=== PATIENT | female | born 2005 | race African-American/Black ===

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

== ENCOUNTER 2024-05-02 17:59 | Emergency (ER) | payer OTHER, SELFPAY ==
[2024-05-02 18:07] VITALS: BP 152/87; PULSE 98; RESP 18; TEMP 35.8; O2SAT 98
--- NOTE | 2024-05-02 18:24 | ED.WOUNDLAC ---
HPI - Wound/Laceration General Chief Complaint: Wound/Laceration Stated Complaint: Laceration Right Arm Time Seen by Provider: 05/02/24 18:24 Source: patient Mode of arrival: ambulatory Limitations: no limitations History of Present Illness HPI narrative: 18-year-old female presents with laceration to right forearm. Your happen approximately 50 minutes prior to arrival. Tetanus up-to-date. 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 Bleeding controlled on arrival. All systems reviewed and negative except as noted above. Related Data Home Medications Medication Instructions Recorded Confirmed medroxyprogesterone 150 mg/mL See Rx Instructions .Route .COMPLEX 05/02/24 05/02/24 intramuscular syringe Allergies Allergy/AdvReac Type Severity Reaction Status Date / Time No Known Allergies Allergy Verified 05/02/24 18:41 Review of Systems Review of Systems: CONSTITUTIONAL: Denies fever, chills, or sweats. EYES: Denies visual changes, redness, or discharge. ENT: Denies rhinorrhea, congestion, sore throat, or otalgia. CARDIOVASCULAR: Denies chest pain, palpitations, or edema. RESPIRATORY: Denies cough or dyspnea. GASTROINTESTINAL: Denies abdominal pain, nausea, vomiting, or diarrhea. GENITOURINARY: Denies dysuria or hematuria. SKIN: Denies rash or itching. Reports laceration to right forearm. MUSCULOSKELETAL: Denies back pain, joint pain, or myalgia. NEUROLOGIC: Denies headache, numbness, or weakness. PSYCHIATRIC: Denies anxiety or depression. All other systems reviewed are negative, except as documented in HPI. [facility] Past Medical History Medical History (Updated 05/02/24 @ 18:55 by Manda Marquis NP) Memory deficit Surgical History Surgical History (Updated 05/04/20 @ 11:52 by MILO Osman) No significant past surgical history Family History Family History (Updated 05/04/20 @ 11:53 by MILO Osman) Father Unknown family medical history Mother Mental health disorder Social History Social History (Updated 05/04/20 @ 11:54 by MILO Osman) Smoking status: Never smoker Second hand tobacco smoke exposure: Yes Alcohol intake: never Substance use: never Living arrangements: with family Occupation/Education: student Gender identity (if verbalized by the patient): Female Sexual Orientation (if Verbalized by the Patient): Straight or Heterosexual Comments At time of signature, agree with nursing past medical, surgical, social and family history. There is no relevant family history pertinent to the presenting complaint. Exam Narrative: GENERAL: This is a well-nourished, well-developed patient, in no apparent distress. HEAD: normocephalic, atraumatic. EYES: PERRL. Sclera clear/white. Vision is grossly intact. EARS: External ears normal NOSE: External nose normal NECK: Neck supple, non-tender without lymphadenopathy, masses or thyromegaly. CARDIOVASCULAR: Regular rate and rhythm without murmurs, gallops, or rubs. RESPIRATORY: Clear to auscultation. Breath sounds equal bilaterally. No wheezes, rales, or rhonchi. SKIN: warm, Dry, with no suspicious lesions or rash, good texture and turgor. 2 x 1 cm laceration to right forearm, posterior aspect. Bleeding controlled. NEURO: awake, alert, and oriented to person, place and time. There were no obvious focal neurologic abnormalities. EXTREMITIES: No joint tenderness, effusion, or edema noted. Course Course Level of Care: Express Care Visit Vital Signs Vital signs: Vital Signs Temperature 35.8 C L 05/02/24 18:07 Pulse Rate 98 05/02/24 18:07 Respiratory Rate 18 05/02/24 18:07 Blood Pressure 152/87 H 05/02/24 18:07 Pulse Oximetry 98 05/02/24 18:07 Oxygen Delivery Room Air 05/02/24 18:07 Temperature 35.8 C L 05/02/24 18:07 Pulse Rate 98 05/02/24 18:07 Respiratory Rate 18 05/02/24 18:07 Blood Pressure 152/87 H 04/10
== END 2024-05-02 19:00 | disposition home or self-care (01) ==
PROVIDERS: Emergency Provider Nurse Practitioner Family
DX: S51.811A Laceration without foreign body of right forearm, initial encounter (principal); W45.8XXA Other foreign body or object entering through skin, initial encounter; Y99.0 Civilian activity done for income or pay
CPT/HCPCS: 12001; 99212; G0463

== ENCOUNTER 2024-05-06 14:23 | Emergency (ER) | payer OTHER, SELFPAY ==
[2024-05-06 14:30] VITALS: BP 127/77; PULSE 78; RESP 18; TEMP 36.6; O2SAT 100
--- NOTE | 2024-05-06 14:37 | ED.SKABFB ---
HPI - Skin/Abscess/Foreign Bdy General Stated complaint: WC arm lac infection History of Present Illness HPI narrative: Patient here for evaluation of wound to right arm. Patient was here 3 days ago with a laceration to her arm that it happened while she was at work. Patient presents today for evaluation concerned that there might be some drainage from the wound. No redness no tenderness no fever. Related Data Home Medications Medication Instructions Recorded Confirmed medroxyprogesterone 150 mg/mL See Rx Instructions .Route .COMPLEX 05/02/24 05/06/24 intramuscular syringe Allergies Allergy/AdvReac Type Severity Reaction Status Date / Time No Known Allergies Allergy Verified 05/06/24 14:29 Review of Systems Review of Systems: CONSTITUTIONAL: Denies fever, chills, or sweats. EYES: Denies visual changes, redness, or discharge. ENT: Denies rhinorrhea, congestion, sore throat, or otalgia. CARDIOVASCULAR: Denies chest pain, palpitations, or edema. RESPIRATORY: Denies cough or dyspnea. GASTROINTESTINAL: Denies abdominal pain, nausea, vomiting, or diarrhea. GENITOURINARY: Denies dysuria or hematuria. SKIN: Denies rash or itching. MUSCULOSKELETAL: Denies back pain, joint pain, or myalgia. NEUROLOGIC: Denies headache, numbness, or weakness. PSYCHIATRIC: Denies anxiety or depression. PMFSH Past Medical History Medical History (Updated 05/06/24 @ 14:40 by MILO Metz) Memory deficit Surgical History Surgical History (Updated 05/04/20 @ 11:52 by MILO Osman) No significant past surgical history Family History Family History (Updated 05/04/20 @ 11:53 by MILO Osman) Father Unknown family medical history Mother Mental health disorder Social History Social History (Updated 05/04/20 @ 11:54 by MILO Osman) Smoking status: Never smoker Second hand tobacco smoke exposure: Yes Alcohol intake: never Substance use: never Living arrangements: with family Occupation/Education: student Gender identity (if verbalized by the patient): Female Sexual Orientation (if Verbalized by the Patient): Straight or Heterosexual Comments At time of signature, agree with nursing past medical, surgical, social and family history. There is no relevant family history pertinent to the presenting complaint Exam Narrative: GENERAL: Well-appearing, well-nourished, and in no acute distress. HEAD: Normocephalic, atraumatic. EYES: PERRLA and EOMI. ENT: Nares clear, no rhinorrhea or epistaxis. Mucous membranes moist. NECK: Supple. CHEST: Clear to auscultation. No respiratory distress. HEART: Regular rate and rhythm. No murmur heard. Normal peripheral pulses. ABDOMEN: Soft, nontender, nondistended, normal active bowel sounds. EXTREMITIES: Normal range of motion. No edema. SKIN: Warm, dry, no rash. Edges well approximated to wound to right arm. No redness noted edema no drainage noted. No concern for secondary infection. Steri-Strips in place. NEURO: No focal deficits. Alert and oriented x3. [place] Coma Scale Eye Opening: Spontaneous 4 Abe Coma Scale Motor: Obeys Commands 6 Abe Coma Scale Verbal: Oriented 5 Abe Coma Scale Total 15 Course Course Level of Care: Express Care Visit Vital Signs Vital signs: Vital Signs Temperature 36.6 C 05/06/24 14:30 Pulse Rate 78 05/06/24 14:30 Respiratory Rate 18 05/06/24 14:30 Blood Pressure 127/77 05/06/24 14:30 Pulse Oximetry 100 05/06/24 14:30 Oxygen Delivery Room Air 05/06/24 14:30 Temperature 36.6 C 05/06/24 14:30 Pulse Rate 78 05/06/24 14:30 Respiratory Rate 18 05/06/24 14:30 Blood Pressure 127/77 05/06/24 14:30 Pulse Oximetry 100 05/06/24 14:30 Oxygen Delivery Room Air 05/06/24 14:30 Discharge Plan Discharge Clinical Impression: Visit for wound check Patient Disposition: Home, Self-Care Condition: Stable Instructions: Antibiotic
== END 2024-05-06 14:45 | disposition home or self-care (01) ==
PROVIDERS: Emergency Provider Nurse Practitioner Family; PCP Nurse Practitioner Family
DX: Z48.00 Encounter for change or removal of nonsurgical wound dressing (principal)
CPT/HCPCS: 99213; G0463

== ENCOUNTER 2025-01-06 11:51 | Emergency (ER) | payer OTHER, SELFPAY ==
--- NOTE | ~2025-01-06 | XR_ITS ---
EXAM: XR abdomen/kub 1V DATE: 01/06/2025 16:12 HISTORY: eval stool burden; constipation . COMPARISON: None available. FINDINGS: Lung bases not included in the [id number]. Normal bowel gas pattern. Moderate volume of intracolonic feces. Enlarged liver. No abnormal abdominal calcification. Regional bones and soft tis sues normal for age. IMPRESSION: Hepatomegaly. No radiographic evidence of obstruction or ileus. Moderate volume of intrac olonic feces. Reviewed, dictated and finalized at location K. IMPRESSION: Hepatomegaly. No radiographic evidence of obstruction or ileus. Mod erate volume of intracolonic feces.
--- OUTSIDE RECORDS SUMMARY | 2025-01-06 11:54 | XMS_ITS | Clinical Summary ---
Author Organization [facility] Address [address] [place] [address] Phone Care Team Providers Care Appraisal Technician Name Role Phone Saira Vidal MD Primary Care Provider [phone] Allergies No known active allergies Medications FLUoxetine (PROZAC) 20 MG Capsule Take 20 mg by mouth daily. 0 01/08/2019 Active traZODone (DESYREL) 50 MG Tablet Take 50 mg by mouth nightly. 0 01/08/2019 Active Social History Tobacco Use Types Packs/Day Years Used Date Smoking Tobacco: Never Smokeless Tobacco: Never Alcohol Use Standard Drinks/Week Comments No 0 (1 standard drink = 0.6 oz pur e alcohol) Comments No Sex and Gender Information Value Date Recorded Sex Assigned at Not on file Legal Sex Female 11:48 PM CDT Gender Identity Not on file Sexual Orientation Not on file Last Filed Vital Signs Vital Sign Reading Time Taken Comments Blood Pressure 149/82 07/27/2022 4:00 PM CDT Pulse 104 07/27/2022 4:00 PM CDT Temperature 37.1 C (98.8 F) 07/27/2022 3:30 PM CDT Respiratory Rate 25 07/27/2022 4:00 PM CDT Oxygen Saturation 98% 07/27/2022 4:00 PM CDT Inhaled Oxygen Concentration - - Weight 107 kg (236 lb) 07/27/2022 1:47 PM CDT Height 172.7 cm (5' 8 ) 07/27/2022 1:47 PM CDT Body Mass Index 35.88 07/27/2022 1:47 PM CDT Plan of Treatment Health Maintenance Due Date Last Done Comments Hepatitis C Virus (HCV) Screening 2004 Meningococcal B Immunization (1 of 2 - Standard) 2020 Influenza Immunization (#1) 06/10/202406/12, 07/09/2014, 10/28/2005 SARS-COV-2 Immunization ( season) 2024 12/17/2021, 07/23/2021, 07/02/2021 Respiratory Syncytial Virus (RSV) Immunization (Adult) (1 - 1-dose 75+ series) 2079 Hepatitis B Immunization Completed 005, 04/06/2005, 02/23/2005, Additional history exists Pneumococcal Immunization Combined Aged Out 02/21/2006, 06/17/2005, 04/06/2005, Additional history exists No longer eligible based on patient's age to complete this topic Hepatitis A Immunization Discontinued 008, 11/13/2007, 02/06/2007, Additional history exists Measles Mumps Rubella (MMR) Immunization Discontinued 11/17/2009, 11/19/2005 Polio (IPV) Immunization Discontinued 010, 06/17/2005, 04/06/2005, Additional history exists Varicella Immunization Discontinued 11/17/2009, 2005 DTaP/Tdap/Td Immunization Discontinued 2015, 11/17/2009, 02/21/2006, Additional history exists TdaP Immunization Completed 12/19/2015 Human Papillomavirus (HPV) Immunization Completed 03/21/2019, 12/19/2015 Meningococcal Immunization (ACWY) Completed 12/14/2021, 12/19/2015, 12/19/2015 Rotavirus Immunization Aged Out No lo nger eligible based on patient's age to complete this topic Insurance [employer]ID [employer] Care Teams Appraisal Technician Relationship Specialty Start Date End Date Saira Vidal MD [address] [facility] [address] [address] PCP - General Pediatrics 11/10/15
--- OUTSIDE RECORDS SUMMARY | 2025-01-06 11:54 | XMS_ITS | Data Portability ---
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 menopausal symptoms; Normal vaginal lubrication Psychological symptoms:No depression; No anxiety; No PMDD Preventive measures:Encourage self breast examination; Encourage regular exercise; Encourage no tobacco use; Encourage regular mammograms starting age [age] yo fe here for depo restart- currently on cycle Carley PRISCILLA Olivarez Attn: Accounting,[address] [place], [address], [facility] 04/26/2024 17:14:33 07/24/2024 text/html Annual GYNReport ed bypatient.Menstrua l cycle:Irregular cycle intervals Urinary symptoms:No hematuria; No incontinence Vulva:No genital lesion Vagina:Normal vaginal discharge Breast:No breast pain; No breast lump; No nipple discharge Sexual complaints:No sexual complaints; No pain during intercourse; Normal libido Menopausal Symptoms:No menopausal symptoms; Normal vaginal lubrication Psychological symptoms:No depression; No anxiety; No PMDD Preventive measures:Encourage self breast examination; Encourage regular exercise; Encourage no tobacco use; Encourage regular mammograms starting age [age] yo fe here for gomezfélix PRISCILLA Mcclain Attn: Accounting,[address] [place], [address], [facility] - SIF 07/24/2024 16:35:25 11/02/2024 text/html Annual GYNReport ed bypatient.Menstrua l cycle:Irregular cycle intervals Urinary symptoms:No hematuria; No incontinence Vulva:No genital lesion Vagina:Normal vaginal discharge Breast:No breast pain; No breast lump; No nipple discharge Sexual complaints:No sexual complaints; No pain during intercourse; Normal libido Menopausal Symptoms:No menopausal symptoms; Normal vaginal lubrication Psychological symptoms:No depression; No anxiety; No PMDD Preventive measures:Encourage self breast examination; Encourage regular exercise; Encourage no tobacco use; Encourage regular mammograms starting age [age] yo fe here for PRISCILLA Carter Attn: Accounting,[address] [place], [address], [facility] - S[facility] 11/02/2024 15:02:59 OBGyn Episode No OBEpisode recorded.
--- OUTSIDE RECORDS SUMMARY | 2025-01-06 11:54 | XMS_ITS | Clinical Summary ---
Author Organization [facility] ospital Address [address] [place] [address] Care Team Providers Care Band Builder Name Role Phone No, Physician Primary Care Provider Allergies No known active allergies Medications naproxen (NAPROSYN) 500 mg tablet Take 1 tablet (500 mg total) by mouth 2 (two) times a day with meals 30 tablet 4 Active methocarbamoL (ROBAXIN) 500 mg tablet Take 1 tablet (500 mg total) by mouth 2 (two) times a day 20 tablet 4 Active ondansetron ODT (ZOFRAN-ODT) 4 mg disintegrating tablet Take 1 tablet (4 mg total) by mouth every 8 (eight) hours as needed for nausea or vomiting 20 tablet 5 Active naproxen (NAPROSYN) 500 mg tablet Take 1 tablet (500 mg total) by mouth 2 (two) times a day with meals 30 tablet 5 Active Active Problems No known active problems Encounters Date Type Department Care Team Description 01/03/2025 3:38 PM CDT - 01/03/2025 6:34 PM CDT Emergency [facility] Emergency Department [address] [place] [address] Abdominal pain (Primary Dx) Discharge Disposition: Discharge to home or self care 10/13/2024 11:10 AM CRANBERRY SORTER - 10/13/2024 12:23 PM [facility] Emergency [facility] Emergency Department [address] [place] [address] Acute pharyngitis, unspecified etiology (Primary Dx) Discharge Disposition: Discharge to home or self care from Last 3 Months Medical History Medical History Date Comments Anxiety Depression Social History Tobacco Use Types Packs/Day Years Used Date Smoking Tobacco: Never Smokeless Tobacco: Never Alcohol Use Standard Drinks/Week Comments Never 0 (1 standard drink = 0.6 oz pur e alcohol) Personal Safety Answer Date Recorded Have you ever been in or are you currently in a harmful physical or emotional relationship or is someone making you feel afraid or unsafe? Denies 01/03/2025 Comments No Sex and Gender Information Value Date Recorded Sex Assigned at Not on file Legal Sex Female 5:17 PM CRANBERRY SORTER Gender Identity Not on file Sexual Orientation Not on file Obstetrics History Last Filed Vital Signs Vital Sign Reading Time Taken Comments Blood Pressure 129/87 01/03/2025 2:04 PM CDT Pulse 89 01/03/2025 2:04 PM CDT Temperature 36.6 C (97.9 F) 01/03/2025 2:04 PM CDT Respiratory Rate 16 01/03/2025 2:04 PM CDT Oxygen Saturation 98% 01/03/2025 2:04 PM CDT Inhaled Oxygen Concentration - - Weight 115.7 kg (255 lb) 01/03/2025 2:04 PM CDT Height 180.3 cm (5' 11 ) 01/03/2025 2:04 PM CDT Body Mass Index 35.57 01/03/2025 2:04 PM CDT Plan of Treatment Health Maintenance Due Date Last Done Comments Chlamydia and Gonorrhea (GC/ CT) Screening 2004 Depression Screening 2004 Hepatitis C Screening 2004 Meningococcal B Vaccine (1 o f 2 - Standard) 2020 Regular Well Visit/Exam 18-64 2022 Covid-19 Vaccine (2023-2 5 season) 2024 12/17/2021, 07/23/2021, 07/02/2021 Influenza Vaccine (#1) 2024 4, 06/30/2010, 10/28/2005 DTaP/Tdap/Td Vaccine (7 - Td or Tdap) 12/18/2025 12/19/2015, 11/17/2009, 02/21/2006, Additional history exists Hepatitis B Screening Completed 06/17/2005 , 04/06/2005, 02/23/2005, Additional history exists Pneumococcal vaccine <65 Completed 006, 06/17/2005, 04/06/2005, Additional history exists Varicella Vaccines Completed 11/17/2009, 11/19/2005 HPV Vaccines Completed 03/21/2019, 12/19/2015 Meningococcal Vaccine Completed 12/14/2021, 016 Procedures Procedure Name Priority Date/Time Associated Diagnosis Comments CT ABDOMEN PELVIS W CONTRAST ED 01/03/2025 4:47 PM CDT URINALYSIS, MICROSCOPIC ONLY STAT 01/03/2025 4:13 PM CDT URINALYSIS AND REFLEX TO MICROSCOPIC AND CULTURE STAT 01/03/2025 4:13 PM CDT POCT HCG, URINE Routine 01/03/2025 4:10 PM CDT EGFR STAT 01/03/2025 2:11 PM CDT DIFFERENTIAL AUTO STAT 01/03/2025 2:1 1 PM CDT LIPASE STAT 01/03/2025 2:11 PM CDT COMPREHENSIVE METABOLIC PANEL STAT 01/03/2025 2:11 PM CDT CBC WITH AUTO DIFFERENTIAL STAT 01/03/2025 2:11 PM CDT INFLUENZA A/B, RSV, AND COVID-19 PCR Routine 10/13/2024 9:13 AM CRANBERRY SORTER STREPTOCOCCUS GROUP A PCR STAT 10/13/2024 9:13 AM CRANBERRY SORTER from Last 3 Months Results * CT Abdomen Pelvis W Contrast (01/03/2025 4:47 PM CDT) Anatomical Region Laterality Modality Body N/A Computed Tomogra phy 01/03/2025 5:25 PM CDT Narrative 01/03/2025 5:30 PM CDT EXAM DESCRIPTION: CT ABDOMEN PELVIS W CONTRAST REASON FOR STUDY: Abdominal pain, acute, nonlocalized abd pain since last night. Pt states she went to her PCP this morning for the pain and when she palpated her abd she had pain so they sent her to the ED. Pt states nausea. TECHNIQUE: CT scan of the abdomen and pelvis performed with intravenous and without oral contrast using helical scanning technique with dynamic intravenous contrast injection. Reconstructed coronal and sagittal MPR images reviewed. All images stored on PACS. Automated exposure control was used as a dose optimization technique for this examination. CONTRAST TYPE/DOSE: 100mL of IOVERSOL 350 MG IODINE/ML INTRAVENOUS SYRINGE injected via intravenous COMPARISON: None available FINDINGS: LOWER CHEST: No significant pulmonary abnormalities. No effusion. LIVER: Normal size. No identified cystic or solid masses. GALLBLADDER: Decompressed. BILE DUCTS: No intrahepatic or extrahepatic ductal dilatation. SPLEEN: Normal size. No focal lesions. PANCREAS: No identified cystic or solid masses. No significant calcifications. No adjacent inflammation or peripancreatic fluid collections. Pancreatic duct not dilated. ADRENALS: Normal. KIDNEYS/URINARY TRACT: No identified significant cystic or solid masses. No visualized stones. No hydronephrosis or hydroureter. Symmetric enhancement. Urinary bladder is unremarkable. GI: No dilated bowel loops. No obvious wall thickening. Normal appendix. No significant diverticular disease. PERITONEUM: No ascites or free air. RETROPERITONEUM: No mass or adenopathy. REPRODUCTIVE: No significant abnormality. VASCULATURE: No abdominal aortic aneurysm. MUSCULOSKELETAL: No significant abnormality. OTHER: No other abnormality. IMPRESSION: No acute finding. THIS IS AN ELECTRONICALLY VERIFIED FINAL REPORT 01/03/2025 5:30 PM - Electronically signed by Anand Boyce M.D. RB: SANDRA Report ID: [id number] Reading Location: [id number] Procedure Note Anand Boyce MD - 01/03/2025 EXAM DESCRIPTION: CT ABDOMEN PELVIS W CONTRAST REASON FOR STUDY: Abdominal pain, acute, nonlocalized abd pain since last night. Pt states she went to her PCP this morning forthe pain and when she palpated her abd she had pain so they sent her to theED. Pt states nausea. TECHNIQUE: CT scan of the abdomen and pelvis performed with intravenousand without oral contrast using helical scanning technique with dynamic intravenous contrast injection. Reconstructed coronal and sagittal MPRimages reviewed. All images stored on PACS. Automated exposure control was usedas a dose optimization technique for this examination. CONTRAST TYPE/DOSE: 100mL of IOVERSOL 350 MG IODINE/ML INTRAVENOUSSYRINGE injected via intravenous COMPARISON: None available FINDINGS: LOWER CHEST: No significant pulmonary abnormalities. No effusion. LIVER: Normal size. No identified cystic or solid masses. GALLBLADDER: Decompressed. BILE DUCTS: No intrahepatic or extrahepatic ductal dilatation. SPLEEN: Normal size. No focal lesions. PANCREAS: No identified cystic or solid masses. No significant calcifications. No adjacent inflammation or peripancreatic fluidcollections. Pancreatic duct not dilated. ADRENALS: Normal. KIDNEYS/URINARY TRACT: No identified significant cystic or solid masses.No visualized stones. No hydronephrosis or hydroureter. Symmetricenhancement. Urinary bladder is unremarkable. GI: No dilated bowel loops. No obvious wall thickening. Normalappendix. No significant diverticular disease. PERITONEUM: No ascites or free air. RETROPERITONEUM: No mass or adenopathy. REPRODUCTIVE: No significant abnormality. VASCULATURE: No abdominal aortic aneurysm. MUSCULOSKELETAL: No significant abnormality. OTHER: No other abnormality. IMPRESSION: No acute finding. THIS IS AN ELECTRONICALLY VERIFIED FINAL REPORT 01/03/2025 5:30 PM - Electronically signed by Anand Boyce M.D. RB: SANDRA Report ID: [id number] Reading Location: [place] [address] Hilda Aftab [facility] PROCEDURES Final Result * (ABNORMAL) Urinalysis reflex to microscopic and culture Urine (01/03/2025 4:13 PM CDT) Color, ur Yellow Yellow Clarity, ur Clear Clear [facility] ([place]) Specific gravity, ur 1.028 1.003 - 1.030 [facility] ([place]) pH, urine 5.5 [facility] ([place]) Comment: Interpretive Data U rine pH is affected by diet, medications, systemic acid-base disturbances, and renal tubular function. pH may affect urinary stone formation. For example, urine pH below 6.0 may help reduce the tendency for calcium phosphate stones and pH greater than 6.0 may reduce the tendency for uric acid stone formation. Source: [facility] [employer] Current Interpretive Data was last revised on 2017 Protein, ur ql Negative Negative [facility] ([place]) Glucose, ur ql Negative Negative [facility] ([place]) Ketones, ur Negative Negative [facility] ([place]) Bilirubin, ur Negative Negative [facility] ([place]) Blood, ur Negative Negative [facility] ([place]) Urobilinogen, ur <2.0 <2.0 mg/dL [facility] ([place]) Nitrite, ur Negative Negative [facility] ([place]) Leukocyte esterase, ur 2+(A) Negative [facility] ([place]) UA reflex comment Reflex to microscopic UA will be performed. [facility] ([place]) Urine 01/03/2025 4:13 PM CDT 01/03/2025 4:17 PM CDT Lucina Vigil MD LAB MICROBIOLOGY - GENERA L ORDERABLES Final Result [facility] ([place]) 1 [facility] Department of Laboratories [place], [place] [id number] * (ABNORMAL) Urinalysis, microscopic only (01/03/2025 4:13 PM CDT) WBC, ur 0-5 0 - 5 /HPF RBC, ur 0-2 0 - 2 /HPF [facility] ([place]) Epithelial cells, squamous, ur 1-5 0 - 5 /HPF [facility] ([place]) Bacteria, ur Trace(A) [facility] ([place]) Mucous, ur Present(A) [facility] ([place]) Culture Reflex Comment Reflex conditions for urine culture (WBC >10) not met. [facility] ([place]) Urine 01/03/2025 4:13 PM CDT 01/03/2025 4:17 PM CDT Lucina Vigil MD LAB URINE ORDERABLES Felecia l Result [facility] ([place]) 1 [facility] [place] [address] * POCT hCG, urine (01/03/2025 4:10 PM CDT) HCG, ur, POC Negative Negative Lot Number [id number] QC Backgroud Clear Acceptable QC Control Line Acceptable Urine 01/03/2025 4:10 PM CDT Lucina Vigil MD POINT OF CARE TEST ORDERA BLES Final Result * eGFR (01/03/2025 2:11 PM CDT) Pathologist [facility] eGFR >90 >=60 mL/min/1. 73 m2 Comment: Interpretive Data Reference Interval Normal >/= 90 mL/min/1.73m2 Mildly decreased* 60 - 89 mL/min/1.73m2 Mildly to moderately decreased 45 - 59 mL/min/1.73m2 Moderately to severely decreased 30 - 44 mL/min/1.73m2 Severely decreased 15 - 29 mL/min/1.73m2 Kidney Failure < 15 mL/min/1.73m2 *Relative to young adult level Estimated glomerular filtration rate is determined by the 2020 CKD-EPI equation recommended by the National Kidney Foundation (A Unifying Approach to GFR Estimation: Recommendations of the NKF-ASK Task Force on Reassessing the Inclusion of Race in Diagnosing Kidney Disease, JASN 2020). The CKD-EPI equation should not be used for patients with unstable renal function and has not been validated in children and those over 70. Current interpretive data was last reviewed 2021. Blood 01/03/2025 2:11 PM CDT 01/03/2025 2:14 PM CDT Lucina Vigil MD LAB BLOOD ORDERABLES Felecia l Result [facility] ([place]) 1 [facility] [place] [address] * Differential, auto (01/03/2025 2:11 PM CDT) Neutrophil abs 3.6 1.5 - 6.5 K/cumm Imm gran abs 0.0 0.0 - 0.1 K/cumm [facility] ([place]) Lymphocyte abs 2.8 0.8 - 3.3 K/cumm [facility] ([place]) Monocyte abs 0.3 0.2 - 0.8 K/cumm [facility] ([place]) Eosinophil abs 0.1 0.0 - 0.5 K/cumm [facility] ([place]) Basophil abs 0.0 0.0 - 0.1 K/cumm [facility] ([place]) Neutrophil pct 51.8 % [facility] ([place]) Comment: Interpretive Data Percent cell count reference ranges are not reported, since discordance with absolute values may lead to misinterpretation of CBC data. Current Interpretive Data was last revised on 2018. Imm gran pct 0.3 % [facility] ([place]) Comment: Interpretive Data Percent cell count reference ranges are not reported, since discordance with absolute values may lead to misinterpretation of CBC data. Current Interpretive Data was last revised on 2018. Lymphocyte pct 40.6 % [facility] ([place]) Comment: Interpretive Data Percent cell count reference ranges are not reported, since discordance with absolute values may lead to misinterpretation of CBC data. Current Interpretive Data was last revised on 2018. Monocyte pct 5.0 % [facility] ([place]) Comment: Interpretive Data Percent cell count reference ranges are not reported, since discordance with absolute values may lead to misinterpretation of CBC data. Current Interpretive Data was last revised on 2018. Eosinophil pct 1.9 % [facility] ([place]) Comment: Interpretive Data Percent cell count reference ranges are not reported, since discordance with absolute values may lead to misinterpretation of CBC data. Current Interpretive Data was last revised on 2018. Basophil pct 0.4 % [facility] ([place]) Comment: Interpretive Data Percent cell count reference ranges are not reported, since discordance with absolute values may lead to misinterpretation of CBC data. Current Interpretive Data was last revised on 2018. Blood 01/03/2025 2:11 PM CDT 01/03/2025 2:14 PM CDT Lucina Vigil MD LAB BLOOD ORDERABLES Felecia l Result [facility] ([place]) 1 [facility] [place] [address] * (ABNORMAL) CBC with auto differential (01/03/2025 2:11 PM CDT) Pathologist [facility] WBC 6.9 3.8 - 9.9 K/cumm Hgb 12.7 11.9 - 15.5 g/dL [facility] ([place]) Hct 38.3 35.6 - 45.5 % [facility] ([place]) Plt 200 150 - 400 K/cumm [facility] ([place]) MPV 10.4 9.1 - 12.3 fL [facility] ([place]) RBC 5.11 3.90 - 5.20 M/cumm [facility] ([place]) MCV 75.0(L) 81.3 - 96.4 fL [facility] ([place]) MCH 24.9(L) 27.1 - 33.3 pg [facility] ([place]) MCHC 33.2 32.3 - 35.7 g/dL [facility] ([place]) RDW CV 13.5 11.1 - 14.9 % [facility] ([place]) RDW SD 35.8 35.7 - 48.1 fL [facility] ([place]) NRBC abs 0.02(H) 0.00 - 0.01 K/cumm [facility] ([place]) Blood Venous blood specimen / Unknown 01/03/2025 2:11 PM CDT 01/03/2025 2:14 PM CDT Lucina Vigil MD LAB BLOOD ORDERABLES Felecia l Result [facility] ([place]) 1 [facility] [place] [address] * Lipase (01/03/2025 2:11 PM CDT) Lipase 19 10 - 99 Units/L Blood Venous blood specimen / Unknown 01/03/2025 2:11 PM CDT 01/03/2025 2:14 PM CDT Lucina Vigil MD LAB BLOOD ORDERABLES Felecia escudero Result [facility] ([place]) 1 [facility] [place] [address] * (ABNORMAL) Comprehensive metabolic panel (01/03/2025 2:11 PM CDT) Sodium 140 135 - 145 mmol/L Potassium, pl 4.8 3.3 - 4.9 mmol/L [facility] ([place]) Comment:Moderately Hemolyzed Specimen. Results may be affected. Chloride 106 97 - 110 mmol/L [facility] ([place]) CO2 19(L) 22 - 32 mmol/L [facility]) Anion gap 15 2 - 15 mmol/L [facility] ([place]) BUN 11 6 - 25 mg/dL [facility] ([place]) Creatinine 0.83 0.60 - 1.10 mg/dL [facility]) Glucose 80 70 - 199 mg/dL [facility] ([place]) Comment: Interpretive Data Fasting glucose >/= 126 mg/dl is diagnostic for diabetes. Fasting is defined as no caloric intake for at least 8 hours. Fasting glucose between 100 mg/dl to 125 mg/dl is diagnostic of prediabetes. In a patient with classic symptoms of hyperglycemia or hyperglycemic crisis, a random glucose >/= 200 mg/dl is diagnostic for diabetes. In the absence of unequivocal hyperglycemia, results should be confirmed by repeat testing. The classification and Diagnosis of Diabetes Diabetes Care 2021; 46: S19-S40. Current interpretive data was last revised 2022. Calcium 9.5 8.5 - 10.3 mg/dL [facility]) Bilirubin, total 0.3 0.1 - 1.2 mg/dL [facility] ([place]) Protein, pl 7.7 6.5 - 8.5 g/dL [facility] ([place]) Albumin 4.1 3.5 - 5.0 g/dL [facility] ([place]) Alk phos 78 40 - 130 Units/L [facility] ([place]) ALT 18 7 - 45 Units/L [facility] ([place]) Comment: Hemolysis present. Results may be affected. Moderately Hemolyzed Specimen AST 22 10 - 45 Units/L [facility] ([place]) Comment: Hemolysis present. Results may be affected. Moderately Hemolyzed Specimen Blood 01/03/2025 2:11 PM CDT 01/03/2025 2:14 PM CDT Lucina Vigil MD LAB BLOOD ORDERABLES Felecia escudero Result [facility] 1 [facility] [place] [address] * Influenza A/B, RSV, and COVID-19 PCR Nasopharyngeal (10/13/2024 9:13 AM CRANBERRY SORTER) COVID-19 RNA Negative Negative Influenza A RNA Negative Negative [facility] Influenza B RNA Negative Negative [facility]3] ER [facility] ([place]) RSV RNA Negative Negative [facility] ([place]) Comment: Interpretive data: Testing performed by [facility]. This test is performed using the [employer] Xpert Xpress CoV-2/Flu/RSV plus assay. This is a multiplex, real- time reverse transcriptase PCR assay intended for the qualitative detection of nucleic acid from SARS-CoV-2, influenza A, influenza B, and respiratory syncytial virus. This assay has been cleared by the [place] Food and Drug administration. The performance characteristics have been verified by the [facility]. Results must be considered in the clinical context, and a negative result does not rule out infection. Interpretive Data last revised 2023 Nasopharyngeal 10/13/2024 9: 13 AM CRANBERRY SORTER 10/13/2024 9:17 AM CRANBERRY SORTER Narrative [facility] - 10/13/2024 10:09 AM CRANBERRY SORTER Is the Patient experiencing symptoms consistent with COVID?->Yes Charly Rosas MD LAB MICROBIOLOGY - GENERAL O RDERABLES Final Result [facility] ([place]) 1 [facility] [place] [address] * Streptococcus Group A PCR Throat (10/13/2024 9:13 AM CRANBERRY SORTER) Strep A DNA Not Detected Not Detected Comment: This test is performed using the [employer] Xpert Group A Streptococcal Assay. This is a qualitative, real-time PCR assay that detects Group A Strep using throat specimens from patients suspected of having streptococcal pharyngitis. This assay does not detect other beta-hemolytic streptococci including Group C or Group G. Group C and G have been associated with pharyngitis and, occasionally, acute nephritis but do not cause rheumatic fever. If suspected, order Throat Culture, Routine. This assay has been cleared by the [place] Food and Drug Administration, and its performance characteristics have been verified by the performing laboratory. Throat 10/13/2024 9:13 AM CRANBERRY SORTER 10/13/2024 9:17 AM CRANBERRY SORTER Charly Rosas MD LAB MICROBIOLOGY - GENERAL O RDERABLES Final Result Performing Organization Address [facility] de Phone Number [facility] ([place]) 1 [facility] [place] [address] from Last 3 Months Insurance [facility] [place] [address] Care Teams Band Builder Relationship Specialty Start Date End Date No, Physician PCP - General 10/13/24
--- OUTSIDE RECORDS SUMMARY | 2025-01-06 11:54 | XMS_ITS | Encounter Summary ---
Author Organization [facility] Address [address] [place] [address] Care Team Providers Care Contract Post Office Clerk Name Role Phone Saira Vidal MD Primary Care Provider [phone] Encounter Details Date Type Department Care Team (Late st Contact Info) Description 03/21/2019 Telephone [facility] Pediatrics - [address] [address] Page Mott MD [address] [place] [address] Social History Tobacco Use Types Packs/Day Years Used Date Smoking Tobacco: Never Alcohol Use Standard Drinks/Week Comments No 0 (1 standard drink = 0.6 oz pur e alcohol) Sex and Gender Information Value Date Recorded Sex Assigned at Not on file Gender Identity Not on file Sexual Orientation Not on file documented as of this encounter Miscellaneous Notes * Telephone Encounter - Lauren Sena - 04/03/2019 10:14 AM CDT Family spoke with Lisbet in the procedure room and cancelled scope scheduled for 04/06/2019. * Telephone Encounter - Beatriz Lewis RN - 03/23/2019 10:35 AM CDT Verified orders in epic. Prep letter mailed to home address. * Telephone Encounter - Lauren Sena - 03/23/2019 10:24 AM CDT Spoke with chuy, rescheduled colonoscopy for 04/06/2019 @ 12:[address] Anaya. Chuy would like to discuss the prep instructions (prep to be mailed to the address on file). * Telephone Encounter - Lauren Sena - 03/22/2019 9:07 AM CDT Left a message to call the office to reschedule colonoscopy. * Telephone Encounter - Lauren Sena - 03/21/2019 10:23 AM CDT Left a message to call the office to reschedule colonoscopy. documented in this encounter Plan of Treatment Not on file documented as of this encounter Visit Diagnoses Not on filedocumented in this encounter Care Teams Contract Post Office Clerk Relationship Specialty Start Date End Date Saira Vidal MD PCP - General Pediatrics 02/23/16 documented as of this encounter
--- OUTSIDE RECORDS SUMMARY | 2025-01-06 11:54 | XMS_ITS | Clinical Summary ---
Author Organization [facility] Address [address] [place] [address] Care Team Providers Care Payroll Professional Name Role Phone Saira Vidal MD Primary Care Provider Source Comments [facility] [employer],non-owned Affiliates and Associated Physician Practices is amultiple site organization consisting of ambulatory clinics and hospital sitesin [place], [place]. This disclosure is being madepursuant to the Care Everywhere program and may not contain all information available regarding this patient. Last updated 18.[facility] [employer] Allergies No known active allergies Medications * Be aware that medications may not be up to date on this document. Alwaysverify current medications with the patient. Medication Sig Dispensed Refills Start Date End Date Status albuterol HFA (PROVENTIL;VENTOLIN;P ROAIR) 108 (90 BASE) MCG/ACT inhaler Inhale 2 Puffs by mouth every 6 hours as needed Active methocarbamol (Robaxin) 500 MG tablet 02/04/2024 Active traMADol (Ultram) 50 MG tablet Take 1 (one) tablet to 2 (two) tablets by mouth every 6 hours as needed for Pain 40 tablet 02/10/2024 Active naproxen (Naprosyn) 500 MG tablet Take 1 (one) tablet by mouth 2 times daily 50 tablet 02/10/2024 Active Active Problems Problem Noted Date Diagnosed Date Other constipation 01/25/2019 Rectal bleed 01/24/2019 Closed nondisplaced fracture of proximal phalanx of lesser toe of left foot 02/28/2017 Acute midline thoracic back pain 03/26/2016 Social History Tobacco Use Types Packs/Day Years Used Date Smoking Tobacco: Never Alcohol Use Standard Drinks/Week Comments Not Asked 0 (1 standard drink = 0.6 oz pur e alcohol) Sex and Gender Information Value Date Recorded Sex Assigned at Not on file Gender Identity Not on file Sexual Orientation Not on file Last Filed Vital Signs Vital Sign Reading Time Taken Comments Blood Pressure 138/82 02/10/2024 5:21 PM CDT Pulse 85 02/10/2024 5:21 PM CDT Temperature 36.8 C (98.2 F) 02/10/2024 5:21 PM CDT Respiratory Rate 16 02/10/2024 5:21 PM CDT Oxygen Saturation 98% 02/10/2024 5:21 PM CDT Inhaled Oxygen Concentration - - Weight 106.6 kg (235 lb) 02/10/2024 3:16 PM CDT Height 167.6 cm (5' 6 ) 02/10/2024 3:16 PM CDT Body Mass Index 37.93 02/10/2024 3:16 PM CDT Plan of Treatment Health Maintenance Due Date Last Done Comments HIV SCREENING 2019 HPV VACCINE (1 - 3-dose series) 2019 MENINGOCOCCAL (Group B) VACCINE SHARED DECISION-MAKING (1 of 2 - Standard) 2020 HEPATITIS C SCREENING 11/12/2022 CHLAMYDIA/GONORRHEA SCREENING 07/27/2023 07/27/2022 DTAP/TDAP/TD VACCINES (1 - Tdap) 2023 HEPATITIS B VACCINE (1 of 3 - 19+ 3-dose series) 2023 COVID-19 VACCINE ( - 2023-2 5 season) 2024 12/17/2021, 07/23/2021, 07/02/2021 INFLUENZA VACCINE (#1) 2024 4, 06/30/2010, 10/28/2005 DEPRESSION SCREENING 10/10/2024 ZOSTER VACCINE (1 of 2) 2054 HIB VACCINE Aged Out No longer eligi ble based on patient's age to complete this topic MENINGOCOCCAL GROUPS A/C/Y/W VACCINE Aged Out No longer eligible b ased on patient's age to complete this topic PNEUMOCOCCAL VACCINE Aged Out No long er eligible based on patient's age to complete this topic Care Teams Payroll Professional Relationship Specialty Start Date End Date Saira Vidal MD PCP - General Pediatrics 02/23/16
--- OUTSIDE RECORDS SUMMARY | 2025-01-06 11:54 | XMS_ITS | Referral Summary ---
Author Organization [facility] Address [address] [place] [address] Care Team Providers Care Toolroom Helper Name Role Phone No, Physician Primary Care Provider [phone] Encounters Date Type Department Care Team Description 01/03/2025 3:38 PM CDT - 01/03/2025 6:34 PM CDT Emergency [facility] Emergency Department [address] [place] [address] Abdominal pain (Primary Dx) Discharge Disposition: Discharge to home or self care 10/13/2024 11:10 AM STONECUTTER ASSISTANT - 10/13/2024 12:23 PM [facility] Emergency [facility] Emergency Department [address] [place] [address] Acute pharyngitis, unspecified etiology (Primary Dx) Discharge Disposition: Discharge to home or self care from Last 3 Months Allergies No known active allergies Medications naproxen [...] Active Active Problems No known active problems Social History Tobacco Use Types Packs/Day Years [...] on file Legal Sex Female 5:17 PM STONECUTTER ASSISTANT Gender Identity Not on file Sexual Orientation [...] 01/03/2025 2:04 PM CDT Plan of Treatment Not on file Procedures Procedure Name Priority Date/Time Associated Diagnosis [...] AND COVID-19 PCR Routine 10/13/2024 9:13 AM STONECUTTER ASSISTANT STREPTOCOCCUS GROUP A PCR STAT 10/13/2024 9:13 AM STONECUTTER ASSISTANT from Last 3 Months Results * CT [...] Anand Boyce M.D. RB: SANDRA Report ID: [id number] Reading Location: [id number] Procedure Note Anand Boyce MD - 01/03/2025 [...] Anand Boyce M.D. RB: SANDRA Report ID: [id number] Reading Location: [place] [address] PROCEDURES Final Result * (ABNORMAL) Urinalysis reflex to microscopic and culture Urine (01/03/2025 4:13 PM CDT) Color, ur Yellow Yellow Clarity, ur Clear Clear [facility] ([place]) Specific gravity, ur 1.028 1.003 - [...] tendency for uric acid stone formation. Source: [facility] [employer] Current Interpretive Data was last revised on [...] Reflex to microscopic UA will be performed. [facility] ([place]) Urine 01/03/2025 4:13 PM CDT 01/03/2025 4:17 PM CDT us Lucina Vigil MD LAB MICROBIOLOGY - GENERA L ORDERABLES Final Result [facility] ([place]) [address] Department [place] [address] * (ABNORMAL) Urinalysis, microscopic only (01/03/2025 4:13 PM CDT) [facility] WBC, ur 0-5 0 - 5 /HPF RBC, ur 0-2 0 - 2 /HPF [facility] ([place]) Epithelial cells, squamous, ur 1-5 0 - 5 /HPF [facility] ([place]) Bacteria, ur Trace(A) [facility] ([place]) Mucous, ur Present(A) [facility] ([place]) Culture Reflex Comment Reflex conditions for urine culture (WBC >10) not met. [facility] ([place]) Urine 01/03/2025 4:13 PM CDT 01/03/2025 4:17 PM CDT Lucina Vigil MD LAB URINE ORDERABLES Felecia l Result [facility] ([place]) [address] [facility] Department [place] [address] * POCT hCG, urine (01/03/2025 4:10 PM CDT) [facility] HCG, ur, POC Negative Negative Lot Number [id number] QC Backgroud Clear Acceptable QC Control Line Acceptable Urine 01/03/2025 4:10 PM CDT Lucina Vigil MD POINT OF CARE TEST ORDERA BLES Final Result * eGFR (01/03/2025 2:11 PM CDT) [facility] eGFR >90 >=60 mL/min/1. 73 m2 Comment: [...] 2:11 PM CDT 01/03/2025 2:14 PM CDT us Lucina Vigil MD LAB BLOOD ORDERABLES Felecia escudero Result [facility] ([place]) [address] [facility] Department [place] [address] * Differential, auto (01/03/2025 2:11 PM CDT) [...] Felecia l Result [facility] ([place]) [address] [facility] Department [place] [address] * (ABNORMAL) CBC with auto differential (01/03/2025 2:11 PM CDT) WBC 6.9 3.8 - 9.9 K/cumm Hgb [...] ([place]) MCH 24.9(L) 27.1 - 33.3 pg [facility] ([place]) MCHC 33.2 32.3 - 35.7 g/dL [facility] ([place]) RDW CV 13.5 11.1 - 14.9 % [facility] ([place]) RDW SD 35.8 35.7 - 48.1 fL [facility] ([place]) NRBC abs 0.02(H) 0.00 - 0.01 K/cumm [facility] ([place]) Blood Venous blood specimen / Unknown 01/03/2025 2:11 PM CDT 01/03/2025 2:14 PM CDT Lucina Vigil MD LAB BLOOD ORDERABLES Felecia l Result [facility] ([place]) 1 [facility] [place] [address] * Lipase (01/03/2025 2:11 PM CDT) Pathologist [facility] Lipase 19 10 - 99 Units/L Blood Venous blood specimen / Unknown 01/03/2025 2:11 PM CDT 01/03/2025 2:14 PM CDT Lucina Vigil MD LAB BLOOD ORDERABLES Felecia l Result Performing Organization Address City/[facility]/ZIP Co de Phone Number [facility] ([place]) [address] [facility] [place] [address] * (ABNORMAL) Comprehensive metabolic panel (01/03/2025 2:11 PM CDT) Sodium 140 135 - 145 mmol/L Potassium, pl 4.8 3.3 - 4.9 mmol/L [facility] ([place]) Comment:Moderately Hemolyzed Specimen. Results may be affected. Chloride 106 97 - 110 mmol/L [facility] ([place]) CO2 19(L) 22 - 32 mmol/L [facility] ([place]) Anion gap 15 2 - 15 mmol/L [facility] ([place]) BUN 11 6 - 25 mg/dL [...] 2022. Calcium 9.5 8.5 - 10.3 mg/dL [facility] ([place]) Bilirubin, total 0.3 0.1 - 1.2 mg/dL [facility] ([place]) Protein, pl 7.7 6.5 - 8.5 g/dL [facility] ([place]) Albumin 4.1 3.5 - 5.0 g/dL [facility]) Alk phos 78 40 - 130 Units/L [facility] ([place]) ALT 18 7 - 45 Units/L [facility] ([place]) Comment: Hemolysis present. Results may be affected. Moderately Hemolyzed Specimen AST 22 10 - 45 Units/L [facility] ([place]) Comment: Hemolysis present. Results may be affected. Moderately Hemolyzed Specimen Blood 01/03/2025 2:11 PM CDT 01/03/2025 2:14 PM CDT us Lucina Vigil MD LAB BLOOD ORDERABLES Felecia l Result [facility] ([place]) [address] [facility] Department [place] [address] * Influenza A/B, RSV, and COVID-19 PCR Nasopharyngeal (10/13/2024 9:13 AM STONECUTTER ASSISTANT) COVID-19 RNA Negative Negative Influenza A RNA Negative Negative [facility] ([place]) Influenza B RNA Negative Negative [facility] ([place]) RSV RNA Negative Negative [facility] ([place]) Comment: Interpretive data: Testing performed by [facility]. This test is performed using the [employer] Xpert Xpress CoV-2/Flu/RSV plus assay. This is a multiplex, real- time reverse transcriptase PCR assay intended for the qualitative detection of nucleic acid from SARS-CoV-2, influenza A, influenza B, and respiratory syncytial virus. This assay has been cleared by the [place] Food and Drug administration. The performance characteristics have been verified by the [facility]. Results must be considered in the clinical context, and a negative result does not rule out infection. Interpretive Data last revised 2023 Nasopharyngeal 10/13/2024 9: 13 AM STONECUTTER ASSISTANT 10/13/2024 9:17 AM STONECUTTER ASSISTANT Narrative [facility] ([place]) - 10/13/2024 10:09 AM STONECUTTER ASSISTANT Is the Patient experiencing symptoms consistent with COVID?->Yes us Charly Rosas MD LAB MICROBIOLOGY - GENERAL O RDERABLES Final Result [facility] [address] [facility] Department [place] [address] * Streptococcus Group A PCR Throat (10/13/2024 9:13 AM STONECUTTER ASSISTANT) Pathologist [facility] Strep A DNA Not Detected Not Detected Comment: This test is performed using the [employer] Xpert Group A Streptococcal Assay. This is [...] the performing laboratory. Throat 10/13/2024 9:13 AM STONECUTTER ASSISTANT 10/13/2024 9:17 AM STONECUTTER ASSISTANT us Charly Rosas MD LAB MICROBIOLOGY - GENERAL O RDERABLES Final Result [facility] ([place]) [address] [facility] Department of Laboratories [place], [place] [id number] from Last 3 Months Insurance [facility] [place] [address] Care Teams Toolroom Helper Relationship Specialty Start Date End Date No, Physician PCP - General 10/13/24
[2025-01-06 11:56] VITALS: BP 130/77; PULSE 90; RESP 18; TEMP 36.9; O2SAT 100
--- OUTSIDE RECORDS SUMMARY | 2025-01-06 13:31 | XMS_ITS | Clinical Summary ---
Author Organization [facility] Address [address] [place] [address] Care Team Providers Care Compliance Administrator Name Role Phone Saira Vidal MD Primary Care Provider [phone] Source Comments [facility] [employer],non-owned Affiliates and Associated Physician Practices is amultiple site organization consisting of ambulatory clinics and hospital sitesin [place], [place], [place] and [place]. This disclosure is being madepursuant to the Care Everywhere program and may not contain all information available regarding this patient. Last updated 18.[facility] [employer] Allergies No known active allergies Medications * [...] age to complete this topic Care Teams Compliance Administrator Relationship Specialty Start Date End Date Saira Vidal MD PCP - General Pediatrics 02/23/16
--- OUTSIDE RECORDS SUMMARY | 2025-01-06 13:31 | XMS_ITS | Encounter Summary ---
Author Organization [facility] Address [address] [place] [address] Care Team Providers Care Field Project Manager Name Role Phone Saira Vidal MD Primary Care Provider [phone] Encounter Details Date Type Department Care Team (Late st Contact Info) Description 03/21/2019 Telephone [facility] Pediatrics - [address] [address] Page Mott MD [address] [place] [id number] Social History Tobacco Use Types Packs/Day Years [...] on filedocumented in this encounter Care Teams Field Project Manager Relationship Specialty Start Date End Date Saira Vidal MD PCP - General Pediatrics 02/23/16 documented as of this encounter
--- OUTSIDE RECORDS SUMMARY | 2025-01-06 13:31 | XMS_ITS | Referral Summary ---
Author Organization [facility] Address [address] [place] [address] Care Team Providers Care Fluid Pump Operator Name Role Phone No, Physician Primary Care Provider [phone] Encounters Date Type Department Care Team Description 01/03/2025 3:38 PM CDT - 01/03/2025 6:34 PM CDT Emergency [facility] Emergency Department [address] [place] [address] Abdominal pain (Primary Dx) Discharge Disposition: Discharge to home or self care 10/13/2024 11:10 AM PERSONALIZED LIVING MANAGER NURSE - 10/13/2024 12:23 PM [facility] Emergency [facility] Emergency Department [address] [place] [address] Acute pharyngitis, unspecified etiology (Primary Dx) Discharge [...] on file Legal Sex Female 5:17 PM PERSONALIZED LIVING MANAGER NURSE Gender Identity Not on file Sexual Orientation [...] AND COVID-19 PCR Routine 10/13/2024 9:13 AM PERSONALIZED LIVING MANAGER NURSE STREPTOCOCCUS GROUP A PCR STAT 10/13/2024 9:13 AM PERSONALIZED LIVING MANAGER NURSE from Last 3 Months Results * CT [...] Anand Boyce M.D. RB: SANDRA Report ID: [id number] Reading Location: [id number] Procedure Note Anand Boyce MD - 01/03/2025 [...] Anand Boyce M.D. RB: SANDRA Report ID: [id number] Reading Location: [place] [address] PROCEDURES Final Result [...] tendency for uric acid stone formation. Source: [facility] [employer] Current Interpretive Data was last revised on [...] ([place]) [address] Department [place] [address] * (ABNORMAL) Urinalysis, microscopic only (01/03/2025 4:13 PM CDT) [facility] WBC, ur 0-5 0 - 5 /HPF RBC, ur 0-2 0 - 2 /HPF [facility] ([place]) Epithelial cells, squamous, ur 1-5 0 - 5 /HPF [facility] ([place]) Bacteria, ur Trace(A) [facility] ([place]) Mucous, ur Present(A) [facility] A ([place]) Culture Reflex Comment Reflex conditions for urine culture (WBC >10) not met. [facility] ([place]) Urine 01/03/2025 4:13 PM CDT 01/03/2025 4:17 PM CDT Lucina Vigil MD LAB URINE ORDERABLES Felecia l Result [facility] ([place]) 1 [facility] Department [place] [address] * POCT hCG, urine (01/03/2025 4:10 PM CDT) [facility] HCG, ur, POC Negative Negative Lot Number [id number] QC Backgroud Clear Acceptable QC Control Line Acceptable Urine 01/03/2025 4:10 PM CDT Lucina Vigil MD POINT OF CARE TEST ORDERA BLES Final Result * eGFR (01/03/2025 2:11 PM CDT) [facility] eGFR >90 >=60 mL/min/1. 73 [...] BLOOD ORDERABLES Felecia escudero Result [facility] ([place]) 1 [facility] Department [place] [address] * Differential, auto (01/03/2025 2:11 PM CDT) [...] Felecia l Result [facility] ([place]) 1 [facility] Department [place] [address] * (ABNORMAL) CBC with auto differential (01/03/2025 [...] ([place]) MCH 24.9(L) 27.1 - 33.3 pg [facility] ([place]) MCHC 33.2 32.3 - 35.7 g/dL [facility] ([place]) RDW CV 13.5 11.1 - 14.9 % [facility] ([place]) RDW SD 35.8 35.7 - 48.1 fL [facility] ([place]) NRBC abs 0.02(H) 0.00 - 0.01 K/cumm [facility] ([place]) Blood Venous blood specimen / Unknown 01/03/2025 2:11 PM CDT 01/03/2025 2:14 PM CDT Lucina Vigil MD LAB BLOOD ORDERABLES Felecia l Result [facility] ([place]) 1 [facility] [employer] [place] [address] * Lipase (01/03/2025 2:11 PM CDT) Pathologist [facility] Lipase 19 10 - 99 Units/L Blood Venous blood specimen / Unknown 01/03/2025 2:11 PM CDT 01/03/2025 2:14 PM CDT Lucina Vigil MD LAB BLOOD ORDERABLES Felecia l Result Performing Organization Address City/[facility]/ZIP Co de Phone Number [facility] ([place]) 1 [facility] [place] [address] * (ABNORMAL) Comprehensive metabolic panel (01/03/2025 2:11 PM CDT) Sodium 140 135 - 145 mmol/L Potassium, pl 4.8 3.3 - 4.9 mmol/L [facility] ([place]) Comment:Moderately Hemolyzed Specimen. Results may be affected. Chloride 106 97 - 110 mmol/L [facility] ([place]) CO2 19(L) 22 - 32 mmol/L [facility] ([place]) Anion gap 15 2 - 15 mmol/L [facility] ([place]) BUN 11 6 - 25 mg/dL [facility] ([place]) Creatinine 0.83 0.60 - 1.10 mg/dL [facility] ([place]) Glucose 80 70 - 199 mg/dL [facility] [...] 2022. Calcium 9.5 8.5 - 10.3 mg/dL [facility] ([place]) Bilirubin, total 0.3 0.1 - 1.2 mg/dL [facility] ([place]) Protein, pl 7.7 6.5 - 8.5 g/dL [facility] ([place]) Albumin 4.1 3.5 - 5.0 g/dL [facility] Alk phos 78 40 - 130 Units/L [facility] ([place] ALT 18 7 - 45 Units/L [facility] ([place]) Comment: Hemolysis present. Results may be affected. Moderately Hemolyzed Specimen AST 22 10 - 45 Units/L [facility] ([place]) Comment: Hemolysis present. Results may be affected. Moderately Hemolyzed Specimen Blood 01/03/2025 2:11 PM CDT 01/03/2025 2:14 PM CDT us Lucina Vigli MD LAB BLOOD ORDERABLES Felecia l Result [facility] ([place]) 1 [facility] Department [place] [address] * Influenza A/B, RSV, and COVID-19 PCR Nasopharyngeal (10/13/2024 9:13 AM PERSONALIZED LIVING MANAGER NURSE) COVID-19 RNA Negative Negative Influenza A RNA Negative Negative [facility] ([place]) Influenza B RNA Negative Negative [facility] ([place]) RSV RNA Negative Negative [facility] ([place]) Comment: Interpretive data: Testing performed by [facility]. This test is performed using the [employer] Xpert Xpress CoV-2/Flu/RSV plus assay. This is a multiplex, real- time reverse transcriptase PCR assay intended for the qualitative detection of nucleic acid from SARS-CoV-2, influenza A, influenza B, and respiratory syncytial virus. This assay has been cleared by the [place] Food and Drug administration. The performance characteristics have been verified by the [facility]. Results must be considered in the clinical context, and a negative result does not rule out infection. Interpretive Data last revised 2023 Nasopharyngeal 10/13/2024 9: 13 AM PERSONALIZED LIVING MANAGER NURSE 10/13/2024 9:17 AM PERSONALIZED LIVING MANAGER NURSE Narrative [facility] ([place]) - 10/13/2024 10:09 AM PERSONALIZED LIVING MANAGER NURSE Is the Patient experiencing symptoms consistent with COVID?->Yes us Charly Rosas MD LAB MICROBIOLOGY - GENERAL O RDERABLES Final Result [facility] ([place]) 1 [facility] Department [place] [address] * Streptococcus Group A PCR Throat (10/13/2024 9:13 AM PERSONALIZED LIVING MANAGER NURSE) Pathologist [facility] Strep A DNA Not Detected Not Detected Comment: This test is performed using the [employer] Xpert Group A Streptococcal Assay. This is [...] the performing laboratory. Throat 10/13/2024 9:13 AM PERSONALIZED LIVING MANAGER NURSE 10/13/2024 9:17 AM PERSONALIZED LIVING MANAGER NURSE us Charly Rosas MD LAB MICROBIOLOGY - GENERAL O RDERABLES Final Result [facility] ([place]) 1 [facility] Department of Laboratories [place] [id number] from Last 3 Months Insurance [facility] [place] [address] [address] [place] [address] Care Teams Fluid Pump Operator Relationship Specialty Start Date End Date No, Physician PCP - General 10/13/24
--- OUTSIDE RECORDS SUMMARY | 2025-01-06 13:31 | XMS_ITS | Clinical Summary ---
Author Organization [facility] Address [address] [place] [address] Care Team Providers Care Veneer Taping Machine Operator Name Role Phone No, Physician Primary Care Provider [phone] Allergies No known active allergies Medications naproxen [...] CDT - 01/03/2025 6:34 PM CDT Emergency [facility] Emergency Department 1 [place] [address] Abdominal pain (Primary Dx) Discharge Disposition: Discharge to home or self care 10/13/2024 11:10 AM MANDARIN TUTOR - 10/13/2024 12:23 PM [facility] Emergency [facility] Emergency Department [address] [place] [address] Acute pharyngitis, unspecified etiology (Primary Dx) Discharge [...] on file Legal Sex Female 5:17 PM MANDARIN TUTOR Gender Identity Not on file Sexual Orientation [...] AND COVID-19 PCR Routine 10/13/2024 9:13 AM MANDARIN TUTOR STREPTOCOCCUS GROUP A PCR STAT 10/13/2024 9:13 AM MANDARIN TUTOR from Last 3 Months Results * CT [...] Anand Boyce M.D. RB: SANDRA Report ID: [id number] Reading Location: [id number] Procedure Note Anand Boyce MD - 01/03/2025 [...] Anand Boyce M.D. RB: SANDRA Report ID: [id number] Reading Location: [place] [address] Hilda Aftab ANDRADE [facility] PROCEDURES Final Result * (ABNORMAL) Urinalysis [...] tendency for uric acid stone formation. Source: [facility] [employer] Current Interpretive Data was last revised on [...] ORDERABLES Final Result [facility] ([place]) 1 [facility] Department of Laboratories [place], [place] [id number] * (ABNORMAL) Urinalysis, microscopic only (01/03/2025 4:13 PM CDT) WBC, ur 0-5 0 - 5 /HPF RBC, ur 0-2 0 - 2 /HPF [facility] ([place]) Epithelial cells, squamous, ur 1-5 0 - 5 /HPF [facility] ([place]) Bacteria, ur Trace(A) [facility] ([place]) Mucous, ur Present(A) [facility] ([place]) Culture Reflex Comment Reflex conditions for urine culture (WBC >10) not met. [facility] ([place]) Urine 01/03/2025 4:13 PM CDT 01/03/2025 4:17 PM CDT Lucina Vigil MD LAB URINE ORDERABLES Felecia l Result [facility] ([place]) 1 [facility] [employer] [place] [address] * POCT hCG, urine (01/03/2025 4:10 PM CDT) HCG, ur, POC Negative Negative Lot Number [id number] QC Backgroud Clear Acceptable QC Control Line Acceptable Urine 01/03/2025 4:10 PM CDT Lucina Vigil MD POINT OF CARE TEST ORDERA BLES Final Result * eGFR (01/03/2025 2:11 PM CDT) Pathologist [facility] eGFR >90 >=60 mL/min/1. 73 m2 Comment: [...] BLOOD ORDERABLES Felecia l Result [facility] ([place]) 1 [facility] [employer] [place] [address] * Differential, auto (01/03/2025 2:11 PM CDT) [...] Felecia l Result [facility] ([place]) 1 [facility] [place] [address] * (ABNORMAL) CBC with auto differential (01/03/2025 2:11 PM CDT) Pathologist [facility] WBC 6.9 3.8 - 9.9 K/cumm Hgb [...] Felecia l Result [facility] ([place]) 1 [facility] [place] [address] * Lipase (01/03/2025 2:11 PM CDT) Lipase 19 10 - 99 Units/L Blood Venous blood specimen / Unknown 01/03/2025 2:11 PM CDT 01/03/2025 2:14 PM CDT Lucina Vigil MD LAB BLOOD ORDERABLES Felecia escudero Result [facility] ([place]) 1 [facility] Department [place] [address] * (ABNORMAL) Comprehensive metabolic panel (01/03/2025 2:11 [...] Protein, pl 7.7 6.5 - 8.5 g/dL [facility] ([place]) Albumin 4.1 3.5 - 5.0 g/dL [facility] ([place]) Alk phos 78 40 - 130 Units/L [facility] ([place]) ALT 18 7 - 45 Units/L [facility] ([place]) Comment: Hemolysis present. Results may be affected. Moderately Hemolyzed Specimen AST 22 10 - 45 Units/L [facility] ([place]) Comment: Hemolysis present. Results may be affected. Moderately Hemolyzed Specimen Blood 01/03/2025 2:11 PM CDT 01/03/2025 2:14 PM CDT Lucina Vigil MD LAB BLOOD ORDERABLES Felecia escudero Result [facility] ([place]) 1 [facility] Department [place] [address] * Influenza A/B, RSV, and COVID-19 PCR Nasopharyngeal (10/13/2024 9:13 AM MANDARIN TUTOR) COVID-19 RNA Negative Negative Influenza A RNA Negative Negative [facility] ([place]) Influenza B RNA Negative Negative [facility] ER [facility] ([place]) RSV RNA Negative Negative [facility] ([place]) Comment: Interpretive data: Testing performed by [facility]. This test is performed using the [employer] Xpert Xpress CoV-2/Flu/RSV plus assay. This is a multiplex, real- time reverse transcriptase PCR assay intended for the qualitative detection of nucleic acid from SARS-CoV-2, influenza A, influenza B, and respiratory syncytial virus. This assay has been cleared by the [place] Food and Drug administration. The performance characteristics have been verified by the [facility]. Results must be considered in the clinical context, and a negative result does not rule out infection. Interpretive Data last revised 2023 Nasopharyngeal 10/13/2024 9: 13 AM MANDARIN TUTOR 10/13/2024 9:17 AM MANDARIN TUTOR Narrative [facility] ([place]) - 10/13/2024 10:09 AM MANDARIN TUTOR Is the Patient experiencing symptoms consistent with COVID?->Yes Charly Rosas MD LAB MICROBIOLOGY - GENERAL O RDERABLES Final Result [facility] ([place]) 1 [facility] Department [place] [address] * Streptococcus Group A PCR Throat (10/13/2024 9:13 AM MANDARIN TUTOR) Strep A DNA Not Detected Not Detected Comment: This test is performed using the [employer] Xpert Group A Streptococcal Assay. This is [...] the performing laboratory. Throat 10/13/2024 9:13 AM MANDARIN TUTOR 10/13/2024 9:17 AM MANDARIN TUTOR Charly Rosas MD LAB MICROBIOLOGY - GENERAL O RDERABLES Final Result Performing Organization Address [facility] de Phone Number [facility] ([place]) 1 [facility] [place] [address] from Last 3 Months Insurance [facility] [place] [address] Care Teams Veneer Taping Machine Operator Relationship Specialty Start Date End Date No, Physician PCP - General 10/13/24
--- OUTSIDE RECORDS SUMMARY | 2025-01-06 13:31 | XMS_ITS | Clinical Summary ---
Author Organization [facility] Address [address] [place] [address] Phone Care Team Providers Care Legal Instruments Examiner Name Role Phone Saira Vidal MD Primary Care Provider [phone] Allergies No known active allergies Medications FLUoxetine [...] PLAN MEDICAID [facility] [employer] Care Teams Legal Instruments Examiner Relationship Specialty Start Date End Date Saira Vidal MD 4 [facility] [address] [address] PCP - General Pediatrics 11/10/15
[2025-01-06 14:04] LABS: Add Urine Microscopic? NO; Appearance Urine Clear (Clear); Bilirubin Urine Negative (Negative); Blood Urine Negative (Negative); Color Urine Yellow (Yellow); Glucose Urine UA Negative (Negative); Ketones Urine Negative (Negative); Leukocyte Esterase Ur Negative LEU/UL (Negative); Nitrate Urine Negative (Negative); Protein Urine Negative (Negative); Specific Grav Ur 1.023 (1.001-1.035); pH Urine 7.5 (5.0-9.0)
[2025-01-06 14:11] LABS: BEDSIDEPREGUCG Negative (Negative)
--- NOTE | 2025-01-06 15:18 | ED_ITS ---
HPI - Abdominal Pain General Chief Complaint: Abdominal Pain Stated Complaint: Abd pain since Tuesday Time Seen by Provider: 01/06/25 13:21 Source: patient and other Mode of arrival: ambulatory Limitations: no limitations History of Present Illness HPI narrative: Patient presents with generalized abdominal pain that started on Tuesday01/02/25. She was seen at [facility] 01/03/[address] scan done as well as labs which were negative/normal. She was diagnosed with a gastri virus and muscle pain and given Rx for Naproxyn and Zofran which she state help but wear off. COmes here for a second opinion. She states she was told that she was told to also inform next health care team that she had sinus drainage. Prior to this week, no previous GI issues/doesn't follow with GI. No prior abdominal surgeries. Her LBM was several days ago. She has been constipated and notes her abdominal pain worsens when she tries to force herself to go. Associated with nausea but no diarrhea. No fevers but chilled. NO vaginal bleeding or discharge. Oligomenorrheic, on contraceptive short so 4 months ago. Pain is along right side of abdomen and epigastrium. Related Data Home Medications ?Medication ?Instructions ?Recorded ?Confirmed ?Last Taken ?Type medroxyprogesterone 150 mg/mL See Rx Instructions .Route .COMPLEX 05/02/24 05/06/24 Unknown History intramuscular syringe Allergies Allergy/AdvReac Type Severity Reaction Status Date / Time No Known Allergies Allergy Verified 01/06/25 11:53 [facility] Past Medical History Medical History Memory deficit Surgical History Surgical History No significant past surgical history Family History Family History Father Unknown family medical history Mother Mental health disorder Social History Social History (Updated 05/04/20 @ 11:54 by MILO Osman) Smoking status: Never smoker Second hand tobacco smoke exposure: Yes Alcohol intake: never Substance use: never Living arrangements: with family Occupation/Education: student Gender identity (if verbalized by the patient): Female Sexual Orientation (if Verbalized by the Patient): Straight or Heterosexual Exam 2 Narrative: GENERAL: Well-appearing, well-nourished, and in no acute distress. HEAD: Normocephalic, atraumatic. EYES: Non injected, non icteric ENT: Nares clear, no rhinorrhea or epistaxis. NECK: Supple. CHEST: Speaking in full sentences. No respiratory distress. HEART: Regular rate and rhythm. . ABDOMEN: Obese but Soft, nondistended. NOn tender to palpation throughout x4 quadrants including epigastrium. No rigidity/guarding. No peritoneal. Ram sign negative. No pain at McBurney's point. EXTREMITIES: Normal range of motion. No lower extremity edema. SKIN: Warm, dry, no rash. NEURO: No focal deficits. Alert and oriented x3. PSYCH: Normal mood and affect. Course Vital Signs Vital signs: Vital Signs Temperature 98.5 F 01/06/25 11:56 Pulse Rate 90 01/06/25 11:56 Respiratory Rate 18 01/06/25 11:56 Blood Pressure 130/77 01/06/25 11:56 Pulse Oximetry 100 01/06/25 11:56 Oxygen Delivery Room Air 01/06/25 11:56 Temperature 98.5 F 01/06/25 11:56 Pulse Rate 80 01/06/25 17:29 Respiratory Rate 14 01/06/25 17:29 Blood Pressure 122/64 01/06/25 17:29 Pulse Oximetry 99 01/06/25 17:29 Oxygen Delivery Room Air 01/06/25 11:56 MDM - Abdominal Pain MDM Narrative Medical decision making narrative: Patient presents with abdominal pain associated with nausea. Abdominal pain is generalized but when asked, indicates epigastric and right sided. Benign abdominal exam and she admits that she has been constipated with infrequent stools. Already seen at [facility] ED for same 01/03/25 and diagnosed with gastric virus and muscle pain and Rx Zofran and Naproxyn which she states work but wear off. Wanted second opinion. In the emergency department they are afebrile with vital signs within normal limits. Urinalysis unremarkable. test negative. Patient does not have any leukocytosis. They do not have localized peritonitis. Given patient's age and recently having a work up that included a CT scan, with no acute changes other than continues to have constipation, I do believe this is contributing, especially if considering pre test probability for diagnoses given patient's age. Lower suspicion for acute surgical process. Abd xray does show stool burden. Reasonable to conservatively treat for this to see if improvement. Patient has already been given analageis medication in ED and Bentyl. Given first round of bowel regimen and discharged with prescription(s) for the same. VItal signs remained WNL. Provided work note. Differential Diagnosis Differential diagnosis: Likely abdominal pain, acute appendicitis, constipation, diverticulitis, endometriosis, pancreatitis and other (gastritis; biliary etiology; ) Lab Data 01/06/25 15:40 01/06/25 15:40 Labs: Lab Results 01/06/25 01/06/25 01/06/25 Range/Units 13:54 14:09 15:40 WBC 7.9 (4.5-10.0) K/mm3 RBC 5.35 (4.2-5.4) M/mm3 Hgb 13.2 (12.0-15.0) g/dL Hct 40.1 (37.0-47.0) % MCV 75.0 L (80-100) fl MCH 24.7 L (26-34) pg MCHC 32.9 (32-36) g/dl RDW 13.8 (11.5-14.5) % Plt Count 314 (150-375) k/mm3 MPV 10.2 (7.4-10.4) fl Immature Gran % (Auto) 0.3 (0-0.5) % Neut % (Auto) 57.7 (45.5-73.1) % Lymph % (Auto) 34.6 (18.3-44.2) % [place] % (Auto) 4.8 (2.6-8.5) % Eos % (Auto) 2.2 (0-4.4) % Baso % (Auto) 0.4 (0.2-1.2) % Lymph # (Auto) 2.72 (0.9-3.2) K/mm3 [place] # (Auto) 0.4 (0.1-0.6) K/mm3 Eos # (Auto) 0.2 (0-0.3) K/mm3 Baso # (Auto) 0.0 (0.0-0.1) K/mm3 Abs Immat Gran (auto) 0.02 (0.00-0.031) K/mm3 Absolute Neuts (auto) 4.6 (1.3-6.7) K/mm3 Absolute Nucleated RBC 0.000 (0.0-0.012) K/mm3 Nucleated RBC % 0.0 (0.0-0.2) % Sodium 141 (137-145) mmol/L Potassium 4.1 (3.4-5.0) mmol/L Chloride 107 (98-107) mmol/L Carbon Dioxide 25 (22-30) mmol/L Anion Gap 9 (4-12) mmol/L BUN 11 (7-17) mg/dL Creatinine 0.72 (0.7-1.0) mg/dL Estim Creat Clear Calc 153 ml/min Estimated GFR > 60 (59 - ) Glucose 87 (65-110) mg/dL Calcium 9.2 (8.4-10.2) mg/dL Total Bilirubin 0.4 (0.2-1.3) mg/dL AST 18 (14-36) U/L ALT 20 (6-35) U/L Alkaline Phosphatase 71 (38-126) U/L Total Protein 8.0 (6.3-8.2) g/dL Albumin 4.4 (3.5-5.1) g/dL Lipase 52 (23-300) U/L Urine Color Yellow (Yellow) Urine Appearance Clear (Clear) Urine pH 7.5 (5.0-9.0) Ur Specific [place] 1.023 (1.001-1.035) Urine Protein Negative (Negative) mg/dL Urine Glucose (UA) Negative (Negative) mg/dL Urine Ketones Negative (Negative) mg/dL Ur Blood (Man) Negative (Negative) Urine Nitrate Negative (Negative) Urine Bilirubin Negative (Negative) Urine Urobilinogen 1.0 (<2.0) mg/dL Leukocyte Esterase Rfl Negative (Negative) KEYA/UL POC Urine HCG, Qual Negative (Negative) Imaging Data Attestation: I personally reviewed and interpreted this imaging study as follows: My impression: patient has a fair amount of stool burden on my independent interpretation of abdominal x-ray Radiologist's impression: ITS Impressions Abdomen X-Ray 01/06/25 16:49 IMPRESSION: Hepatomegaly. No radiographic evidence of obstruction or ileus. Moderate volume of intracolonic feces. Discharge Plan Discharge Clinical Impression: Constipation, Abdominal pain Patient Disposition: Home, Self-Care Condition: Stable Instructions: Antibiotic Form, Constipation (DC), High Fiber Diet (ED), Abdominal Pain (ED) Additional Instructions: You are constipated and should increased the amount of water you drink and fiber you eat in your diet and, need a bowel regimen to include both stool softeners (fiber, psyllium), Miralax to help, and a laxative ( magnesium citrate) given how uncomfortable you are right now. follow-up with primary care physician. Return to the emergency department any new or worsening symptoms. Acetaminophen/Tylenol (maximum 4000 mg per day) is safe to take with NSAIDs (Naproxyn) for pain relief. The dicylomine/Bentyl can help with the smooth muscle in your GI tract. Patient Language: Japanese Prescriptions: New acetaminophen 500 mg capsule 1,000 mg PO Q6H PRN (Reason: pain) Qty: 30 0RF dicyclomine 10 mg capsule 20 mg PO BID PRN (Reason: abdominal pain) Qty: 20 0RF magnesium citrate Solution 150 ml PO DAILY PRN (Reason: constipation) Qty: 296 0RF polyethylene glycol 3350 [Miralax] 17 gram/dose powder 17 g PO DAILY Qty: 119 0RF psyllium husk [Metamucil] 0.4 gram capsule 0.4 g PO DAILY Qty: 30 0RF No Action medroxyprogesterone 150 mg/mL syringe See Rx Instructions .ROUTE .COMPLEX Rx Instructions: as prescribed mupirocin 2 % ointment 1 applic TOPICAL TID 7 Days Qty: 15 0RF Follow-up/Referrals: Sher,Carley Rodriguez NP [Primary Care Provider] - Stand Alone Forms: Work/School Release IP Time of Disposition: 17:04
[2025-01-06 15:50] LABS: Basophils Percent Auto 0.4 % (0.2-1.2); Eosinophils Absolute Auto 0.2 K/mm3 (0-0.3); Eosinophils Percent Auto 2.2 % (0-4.4); Hematocrit 40.1 % (37.0-47.0); Hemoglobin 13.2 g/dL (12.0-15.0); Immature Granulocyte Absolute 0.02 K/mm3 (0.00-0.031); Immature Granulocyte Percent A 0.3 % (0-0.5); Lymphocytes Absolute Auto 2.72 K/mm3 (0.9-3.2); Lymphocytes Percent Auto 34.6 % (18.3-44.2); Mean Corpuscular HGB Conc 32.9 g/dl (32-36); Mean Corpuscular Hemoglobin 24.7 pg (26-34); Mean Platelet Volume 10.2 fl (7.4-10.4); Monocytes Absolute Auto 0.4 K/mm3 (0.1-0.6); Monocytes Percent Auto 4.8 % (2.6-8.5); Neutrophils Absolute Auto 4.6 K/mm3 (1.3-6.7); Neutrophils Percent Auto 57.7 % (45.5-73.1); Platelet Count Result 314 k/mm3 (150-375); Red Blood Count 5.35 M/mm3 (4.2-5.4); Red Cell Distribution Width 13.8 % (11.5-14.5); White Blood Count 7.9 K/mm3 (4.5-10.0)
[2025-01-06] MEDS: ONDANSETRON HCL ODT 4 MG TABLET PO (15:58)
[2025-01-06] MEDS: ACETAMINOPHEN 500 MG TABLET 1000 MG PO (15:58)
[2025-01-06 15:59] LABS: Alanine Aminotransferase 20 U/L (6-35); Albumin Level 4.4 g/dL (3.5-5.1); Alkaline Phosphatase 71 U/L (38-126); Anion Gap 9 mmol/L (4-12); Aspartate Amino Transferase 18 U/L (14-36); Bilirubin,Total 0.4 mg/dL (0.2-1.3); Blood Urea Nitrogen 11 mg/dL (7-17); Calcium 9.2 mg/dL (8.4-10.2); Carbon Dioxide 25 mmol/L (22-30); Chloride 107 mmol/L (98-107); Estimated CRCL calculation 153 ml/min; Estimated Glomerular Filt Rate > 60; Glucose 87 mg/dL (65-110); Lipase 52 U/L (23-300); Potassium 4.1 mmol/L (3.4-5.0); Sodium 141 mmol/L (137-145)
[2025-01-06] MEDS: DICYCLOMINE HCL 10 MG CAPSULE 20 MG PO (16:39)
[2025-01-06] MEDS: PSYLLIUM POWDER PACKET 1 PACKET PO (17:28)
[2025-01-06 17:29] VITALS: BP 122/64; PULSE 80; RESP 14; O2SAT 99
[2025-01-06] MEDS: MAGNESIUM CITRATE 300 ML BTL 150 ML PO (17:29)
== END 2025-01-06 17:30 | disposition home or self-care (01) ==
PROVIDERS: Emergency Provider Student in an Organized Health Care Education/Training Program; PCP Nurse Practitioner Family
DX: K59.00 Constipation, unspecified (principal); R16.0 Hepatomegaly, not elsewhere classified
CPT/HCPCS: 36415; 74018; 80053; 81003; 81025; 83690; 85025; 99283; A9270

== ENCOUNTER 2025-01-08 19:13 | Emergency (ER) | payer OTHER, SELFPAY ==
--- NOTE | ~2025-01-08 | CT_ITS ---
CLINICAL INDICATION: Right upper quadrant pain COMPARISON: None. TECHNIQUE: Multiple contiguous axial images of the abdomen and pelvis were performed following the ad ministration of with 100 mL Omnipaque-350 intravenous contrast The dose-length product (DLP) was 1714.45 mGy-cm. Automated exposure control and iterative reconstruction technique were employed. FINDINGS/OBSERVATIONS: Visualized lower thorax: The bilateral lung bases are clear. The heart is of normal size, without pericardial effusion. Small hiatal hernia is present. Liver: The liver demonstrates homogeneous enhancement and is not enlarged. Gallbladder and biliary system: The gallbladder is only minimally distended, and otherwise unremarkable. Pancreas: The pancreas enhances homogeneously without ductal dilatation. Spleen: The spleen enhances homogeneously and is not enlarged. Kidneys: The bilateral kidneys enhance symmetrically without hydronephrosis or renal calculi. Adrenal glands: Unremarkable. Gastrointestinal tract: Fecal stasis within the colon. Appendix: The air-filled appendix is of normal caliber (axial series, images 153 through 156). Vasculature: Unremarkable. Lymph nodes: No pathologically enlarged or morphologically suspicious lymph nodes within the retroperitoneum or at the root of the mesentery. Pelvic structures: The bladder is distended, and otherwise unremarkable. The uterus is retroverted and retroflexed. The bilateral ovaries are unremarkable for patient of this age. Body wall and musculoskeletal: Small fat-containing umbilical hernia. No significant degenerative disease within the lower thoracic or lumbosacral spine. IMPRESSION: No acute pathology within the abdomen or pelvis. Reviewed, dictated and finalized at location A.
--- OUTSIDE RECORDS SUMMARY | 2025-01-08 19:15 | XMS_ITS | Referral Summary ---
Author Organization [facility] o[facility] Address [address] [place] [address] Care Team Providers Care Corporate Travel Consultant Name Role Phone No, Physician Primary Care Provider [phone] Encounters Date Type Department Care Team Description 01/03/2025 3:38 PM CDT - 01/03/2025 6:34 PM CDT Emergency [facility] Emergency Department [address] [place] [address] Abdominal pain (Primary Dx) Discharge Disposition: Discharge to home or self care 10/13/2024 11:10 AM MEDICINE ASSISTANT - 10/13/2024 12:23 PM [facility] Emergency [facility] Emergency Department [address] [place] [address] Acute pharyngitis, unspecified etiology (Primary Dx) Discharge [...] on file Legal Sex Female 5:17 PM MEDICINE ASSISTANT Gender Identity Not on file Sexual [...] AND COVID-19 PCR Routine 10/13/2024 9:13 AM MEDICINE ASSISTANT STREPTOCOCCUS GROUP A PCR STAT 10/13/2024 9:13 AM MEDICINE ASSISTANT from Last 3 Months Results * [...] Anand Boyce M.D. RB: SANDRA Report ID: [id number] Reading Location: [id number] Procedure Note Anand Boyce MD - 01/03/2025 [...] Anand Boyce M.D. RB: SANDRA Report ID: [id number] Reading Location: [place] [address] PROCEDURES Final Result [...] tendency for uric acid stone formation. Source: [facility] Current Interpretive Data was last revised on [...] ([place]) [address] [place] [address] * (ABNORMAL) Urinalysis, microscopic only (01/03/2025 4:13 PM CDT) [facility] WBC, ur 0-5 0 - 5 /HPF RBC, ur 0-2 0 - 2 /HPF [facility] ([place]) Epithelial cells, squamous, ur 1-5 0 - 5 /HPF [facility] ([place]) Bacteria, ur Trace(A) [facility] ([place]) Mucous, ur Present(A) [facility] A ([place]) Culture Reflex Comment Reflex conditions for urine culture (WBC >10) not met. [facility] ([place]) Urine 01/03/2025 4:13 PM CDT 01/03/2025 4:17 PM CDT Lucina Vigil MD LAB URINE ORDERABLES Felecia l Result [facility] ([place]) [address] [facility] [place] [address] * POCT hCG, urine (01/03/2025 4:10 PM CDT) [facility] HCG, ur, POC Negative Negative Lot Number [id number] QC Backgroud Clear Acceptable QC Control Line Acceptable Urine 01/03/2025 4:10 PM CDT Lucina Vigil MD POINT OF CARE TEST ORDERA BLES Final Result * eGFR (01/03/2025 2:11 PM CDT) [facility] eGFR >90 >=60 mL/min/1. 73 m2 [...] BLOOD ORDERABLES Felecia escudero Result [facility] ([place]) [address] [facility] [place] [address] * Differential, auto (01/03/2025 2:11 PM CDT) [...] Felecia l Result [facility] ([place]) [address] [facility] [place] [address] * (ABNORMAL) CBC with auto differential (01/03/2025 [...] ([place]) MCH 24.9(L) 27.1 - 33.3 pg [facility] ([place]) MCHC 33.2 32.3 - 35.7 g/dL [facility] ([place]) RDW CV 13.5 11.1 - 14.9 % [facility] ([place]) RDW SD 35.8 35.7 - 48.1 fL [facility] ([place]) NRBC abs 0.02(H) 0.00 - 0.01 K/cumm [facility] ([place]) Blood Venous blood specimen / Unknown 01/03/2025 2:11 PM CDT 01/03/2025 2:14 PM CDT Lucina Vigil MD LAB BLOOD ORDERABLES Felecia l Result [facility] ([place]) [address] [facility] [place] [address] * Lipase (01/03/2025 2:11 PM CDT) Pathologist [facility] Lipase 19 10 - 99 Units/L Blood Venous blood specimen / Unknown 01/03/2025 2:11 PM CDT 01/03/2025 2:14 PM CDT Lucina Vigil MD LAB BLOOD ORDERABLES Felecia l Result Performing Organization Address City/[facility]/ZIP Co de Phone Number [facility] ([place]) [address] [facility] [place] [address] * (ABNORMAL) Comprehensive metabolic panel (01/03/2025 2:11 PM CDT) Sodium 140 135 - 145 mmol/L Potassium, pl 4.8 3.3 - 4.9 mmol/L [facility] ([place]) Comment:Moderately Hemolyzed Specimen. Results may be affected. Chloride 106 97 - 110 mmol/L [facility] ([place]) CO2 19(L) 22 - 32 mmol/L [facility] ([place]) Anion gap 15 2 - 15 mmol/L [facility] ([place]) BUN 11 6 - 25 mg/dL [...] 2022. Calcium 9.5 8.5 - 10.3 mg/dL [facility] ([place]) Bilirubin, total 0.3 0.1 - 1.2 mg/dL [facility] ([place]) Protein, pl 7.7 6.5 - 8.5 g/dL [facility] ([place]) Albumin 4.1 3.5 - 5.0 g/dL [facility] ([place]) Alk phos 78 40 - 130 Units/L [facility] ([place]) ALT 18 7 - 45 Units/L [facility] ([place]) Comment: Hemolysis present. Results may be affected. Moderately Hemolyzed Specimen AST 22 10 - 45 Units/L [facility] ([place]) Comment: Hemolysis present. Results may be affected. Moderately Hemolyzed Specimen Blood 01/03/2025 2:11 PM CDT 01/03/2025 2:14 PM CDT us Lucina Vigil MD LAB BLOOD ORDERABLES Felecia l Result [facility] ([place]) [address] [facility] [place] [address] * Influenza A/B, RSV, and COVID-19 PCR Nasopharyngeal (10/13/2024 9:13 AM MEDICINE ASSISTANT) COVID-19 RNA Negative Negative Influenza A RNA Negative Negative [facility] ([place]) Influenza B RNA Negative Negative [facility] ([place]) RSV RNA Negative Negative [facility] ([place]) Comment: Interpretive data: Testing performed by [facility]. This test is performed using the [employer] Xpert Xpress CoV-2/Flu/RSV plus assay. This is a multiplex, real- time reverse transcriptase PCR assay intended for the qualitative detection of nucleic acid from SARS-CoV-2, influenza A, influenza B, and respiratory syncytial virus. This assay has been cleared by the [place] Food and Drug administration. The performance characteristics have been verified by the [facility]. Results must be considered in the clinical context, and a negative result does not rule out infection. Interpretive Data last revised 2023 Nasopharyngeal 10/13/2024 9: 13 AM MEDICINE ASSISTANT 10/13/2024 9:17 AM MEDICINE ASSISTANT Narrative [facility] ([place]) - 10/13/2024 10:09 AM MEDICINE ASSISTANT Is the Patient experiencing symptoms consistent with COVID?->Yes us Charly Rosas MD LAB MICROBIOLOGY - GENERAL O RDERABLES Final Result [facility] ([place]) [address] [facility] [place] [address] * Streptococcus Group A PCR Throat (10/13/2024 9:13 AM MEDICINE ASSISTANT) Pathologist [facility] Strep A DNA Not Detected Not Detected Comment: This test is performed using the [employer] Xpert Group A Streptococcal Assay. This is [...] the performing laboratory. Throat 10/13/2024 9:13 AM MEDICINE ASSISTANT 10/13/2024 9:17 AM MEDICINE ASSISTANT us Charly Rosas MD LAB MICROBIOLOGY - GENERAL O RDERABLES Final Result [facility] ([place]) [address] [facility] Department of Laboratories [place], [place] [id number] from Last 3 Months Insurance [facility] [place] [address] [place] [address] Care Teams Corporate Travel Consultant Relationship Specialty Start Date End Date No, Physician PCP - General 10/13/24
--- OUTSIDE RECORDS SUMMARY | 2025-01-08 19:15 | XMS_ITS | Clinical Summary ---
Author Organization [facility] Address [address] [place] [address] Phone Care Team Providers Care Weir Fisher Name Role Phone Saira Vidal MD Primary Care Provider [phone] Allergies No known active allergies Medications FLUoxetine [...] PLAN MEDICAID [facility] Care Teams Weir Fisher Relationship Specialty Start Date End Date Saira Vidal MD [address] [facility] [address] [address] PCP - General Pediatrics 11/10/15
--- OUTSIDE RECORDS SUMMARY | 2025-01-08 19:15 | XMS_ITS | Encounter Summary ---
Author Organization [facility] Address [address] [place] [address] Care Team Providers Care Vp Of Technology Name Role Phone Saira Vidal MD Primary Care Provider Encounter Details Date Type Department Care Team (Late st Contact Info) Description 03/21/2019 Telephone [facility] Pediatrics - [address] [address] Page Mott MD [address] [place] [id number] Social History Tobacco Use Types Packs/Day Years [...] on filedocumented in this encounter Care Teams Vp Of Technology Relationship Specialty Start Date End Date Saira Vidal MD PCP - General Pediatrics 02/23/16 documented as of this encounter
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
--- OUTSIDE RECORDS SUMMARY | 2025-01-08 19:15 | XMS_ITS | Clinical Summary ---
Author Organization [facility] Address [address] [place] [address] Care Team Providers Care Work Car Operator Name Role Phone Saira Vidal MD Primary Care Provider Source Comments [facility] [employer],non-owned Affiliates and Associated Physician Practices is amultiple site organization consisting of ambulatory clinics and hospital sitesin [place], [place], [place] and [place]. This disclosure is being madepursuant to the Care Everywhere program and may not contain all information available regarding this patient. Last updated 18.[facility] [employer] Allergies No known active allergies Medications * [...] age to complete this topic Care Teams Work Car Operator Relationship Specialty Start Date End Date Saira Vidal MD PCP - General Pediatrics 02/23/16
--- OUTSIDE RECORDS SUMMARY | 2025-01-08 19:16 | XMS_ITS | Clinical Summary ---
Author Organization [facility] ospital Address [address] [place] [address] Care Team Providers Care Commercial Loan Coordinator Name Role Phone No, Physician Primary Care Provider [phone] Allergies No known active allergies Medications naproxen [...] CDT - 01/03/2025 6:34 PM CDT Emergency [facility] Emergency Department 1 [place] [address] Abdominal pain (Primary Dx) Discharge Disposition: Discharge to home or self care 10/13/2024 11:10 AM CAMP ATTENDANT - 10/13/2024 12:23 PM [facility] Emergency [facility] Emergency Department 1 [place] [address] Acute pharyngitis, unspecified etiology (Primary Dx) Discharge [...] on file Legal Sex Female 5:17 PM CAMP ATTENDANT Gender Identity Not on file Sexual Orientation [...] AND COVID-19 PCR Routine 10/13/2024 9:13 AM CAMP ATTENDANT STREPTOCOCCUS GROUP A PCR STAT 10/13/2024 9:13 AM CAMP ATTENDANT from Last 3 Months Results * CT [...] Anand Boyce M.D. RB: SANDRA Report ID: [id number] Reading Location: [id number] Procedure Note Anand Boyce MD - 01/03/2025 [...] Anand Boyce M.D. RB: SANDRA Report ID: [id number] Reading Location: [place] [address] Hilda Aftab ANDRADE [facility] CT PROCEDURES Final Result * (ABNORMAL) Urinalysis [...] tendency for uric acid stone formation. Source: [facility] [employer] Current Interpretive Data was last revised on [...] ORDERABLES Final Result [facility] ([place]) 1 [facility] Department of Laboratories [place], [place] [id number] * (ABNORMAL) Urinalysis, microscopic only (01/03/2025 4:13 [...] URINE ORDERABLES Felecia l Result [facility] ([place]) 1 [facility] [employer] [place] [address] * POCT hCG, urine (01/03/2025 4:10 PM CDT) HCG, ur, POC Negative Negative Lot Number [id number] QC Backgroud Clear Acceptable QC Control Line Acceptable Urine 01/03/2025 4:10 PM CDT Lucina Vigil MD POINT OF CARE TEST ORDERA BLES Final Result * eGFR (01/03/2025 2:11 PM CDT) Pathologist [facility] eGFR >90 >=60 mL/min/1. 73 m2 Comment: [...] BLOOD ORDERABLES Felecia l Result [facility] ([place]) 1 [facility] [employer] [place] [address] * Differential, auto (01/03/2025 2:11 PM CDT) [...] Felecia l Result [facility] ([place]) 1 [facility] [place] [address] * (ABNORMAL) CBC with auto differential (01/03/2025 2:11 PM CDT) Pathologist [facility] WBC 6.9 3.8 - 9.9 K/cumm Hgb 12.7 11.9 - 15.5 g/dL [facility] ([place]) Hct 38.3 35.6 - 45.5 % [facility] ([place]) Plt 200 150 - 400 K/cumm [facility] ([place]) MPV 10.4 9.1 - 12.3 fL [facility] ([place]) RBC 5.11 3.90 - 5.20 M/cumm [facility] ([place]) MCV 75.0(L) 81.3 - 96.4 fL [facility] [...] Felecia l Result [facility] ([place]) 1 [place] [address] * Lipase (01/03/2025 2:11 PM CDT) Lipase 19 10 - 99 Units/L Blood Venous blood specimen / Unknown 01/03/2025 2:11 PM CDT 01/03/2025 2:14 PM CDT Lucina Vigil MD LAB BLOOD ORDERABLES Felecia escudero Result [facility] ([place]) 1 [facility] Department [place] [address] * (ABNORMAL) Comprehensive metabolic panel (01/03/2025 2:11 [...] Protein, pl 7.7 6.5 - 8.5 g/dL [facility] ([place]) Albumin 4.1 3.5 - 5.0 g/dL [facility] ([place]) Alk phos 78 40 - 130 Units/L [facility] ([place]) ALT 18 7 - 45 Units/L [facility] ([place]) Comment: Hemolysis present. Results may be affected. Moderately Hemolyzed Specimen AST 22 10 - 45 Units/L [facility] ([place]) Comment: Hemolysis present. Results may be affected. Moderately Hemolyzed Specimen Blood 01/03/2025 2:11 PM CDT 01/03/2025 2:14 PM CDT Lucina Vigil MD LAB BLOOD ORDERABLES Felecia escudero Result [facility] ([place]) 1 [facility] Department [place] [address] * Influenza A/B, RSV, and COVID-19 PCR Nasopharyngeal (10/13/2024 9:13 AM CAMP ATTENDANT) COVID-19 RNA Negative Negative Influenza A RNA Negative Negative [facility] ([place]) Influenza B RNA Negative Negative [facility] ER [facility] ([place]) RSV RNA Negative Negative [facility] ([place]) Comment: Interpretive data: Testing performed by [facility]. This test is performed using the mojio Xpert Xpress CoV-2/Flu/RSV plus assay. This is a multiplex, real- time reverse transcriptase PCR assay intended for the qualitative detection of nucleic acid from SARS-CoV-2, influenza A, influenza B, and respiratory syncytial virus. This assay has been cleared by the [place] Food and Drug administration. The performance characteristics have been verified by the [facility]. Results must be considered in the clinical context, and a negative result does not rule out infection. Interpretive Data last revised 2023 Nasopharyngeal 10/13/2024 9: 13 AM CAMP ATTENDANT 10/13/2024 9:17 AM CAMP ATTENDANT Narrative [facility] ([place]) - 10/13/2024 10:09 AM CAMP ATTENDANT Is the Patient experiencing symptoms consistent with COVID?->Yes Charly Rosas MD LAB MICROBIOLOGY - GENERAL O RDERABLES Final Result [facility] ([place]) 1 [facility] Department [place] [address] * Streptococcus Group A PCR Throat (10/13/2024 9:13 AM CAMP ATTENDANT) Strep A DNA Not Detected Not Detected Comment: This test is performed using the [employer]jio Xpert Group A Streptococcal Assay. This is [...] the performing laboratory. Throat 10/13/2024 9:13 AM CAMP ATTENDANT 10/13/2024 9:17 AM CAMP ATTENDANT Charly Rosas MD LAB MICROBIOLOGY - GENERAL O RDERABLES Final Result Performing Organization Address [facility] de Phone Number [facility] ([place]) 1 [place] [address] from Last 3 Months Insurance [facility] [place] [address] [place] [address] Care Teams Commercial Loan Coordinator Relationship Specialty Start Date End Date No, Physician PCP - General 10/13/24
[2025-01-08 19:19] VITALS: BP 127/70; PULSE 94; RESP 20; O2SAT 100
[2025-01-08 20:08] LABS: BEDSIDEPREGUCG Negative (Negative)
--- NOTE | 2025-01-08 20:11 | PC.NURSE ---
JANNET Holman attempted peripheral IV x2 with no success. Felicita RN to bedside to attempt.
[2025-01-08 20:20] VITALS: BP 146/98; PULSE 84; RESP 16; O2SAT 100
[2025-01-08] MEDS: SODIUM CHLORIDE 0.9% IV 1,000 ML 999 ML IV CONT (20:25)
[2025-01-08] MEDS: MORPHINE SULFATE (*CRX) 4 MG/ML INJ IV PUSH (20:26)
[2025-01-08] MEDS: ONDANSETRON INJ 4 MG/2 ML VIAL IV PUSH (20:27)
--- NOTE | 2025-01-08 20:28 | ED_ITS ---
HPI - Abdominal Pain General Chief Complaint: Abdominal Pain Stated Complaint: abd pain Time Seen by Provider: 01/08/25 19:25 History of Present Illness HPI narrative: Patient is a 19-year-old female who presents ER with abdominal pain. Ongoing for 1 week. She was initially seen at [facility] and had a negative CT scan and blood work. She is told she may have an abdominal wall strain. Pain continued to worsen and she was seen here and diagnosed with constipation. She is taking multiple laxatives and has had multiple bowel movements and is no longer constipated. She reports that she continues to have waves of sharp pain specially in right lower quadrant which moves up to her umbilicus. Does associate with eating or drinking. Pain is worse with physical movement riding in the car. Reports she is sexually active with 1 partner who is a female transition to male but had been a virgin and does not have any concerns for STI. No known history of ovarian cysts. Related Data Home Medications ?Medication ?Instructions ?Recorded ?Confirmed ?Last Taken ?Type medroxyprogesterone 150 mg/mL See Rx Instructions .Route .COMPLEX 05/02/24 05/06/24 Unknown History intramuscular syringe Allergies Allergy/AdvReac Type Severity Reaction Status Date / Time No Known Allergies Allergy Verified 01/08/25 19:25 Review of Systems 2 Review of Systems: All systems reviewed & are unremarkable except as noted in HPI and below Constitutional: Constitutional: Reports no additional constitutional complaints ENT: Reports system reviewed and no additional complaints, except as documented Cardiovascular: Cardiovascular: Reports no additional cardiovascular complaints Respiratory: Respiratory: Reports no additional respiratory complaints [facility] Past Medical History Medical History Memory deficit Surgical History Surgical History No significant past surgical history Family History Family History Father Unknown family medical history Mother Mental health disorder Social History Social History (Updated 05/04/20 @ 11:54 by MILO Osman) Smoking status: Never smoker Second hand tobacco smoke exposure: Yes Alcohol intake: never Substance use: never Living arrangements: with family Occupation/Education: student Gender identity (if verbalized by the patient): Female Sexual Orientation (if Verbalized by the Patient): Straight or Heterosexual Exam 2 Narrative: GENERAL: Well-appearing, obese, and in no acute distress. HEAD: Normocephalic, atraumatic. ENT: Mucous membranes moist. NECK: Supple. CHEST: Clear to auscultation. No respiratory distress. HEART: Regular rate and rhythm. Normal peripheral pulses. ABDOMEN: Soft, tender palpation right lower quadrant but not in the pelvic region, nondistended. EXTREMITIES: Normal range of motion. No edema. SKIN: Warm, dry, no rash. NEURO: Alert and oriented x3. PSYCH: Normal mood and affect. Course Course Emergency Course: LUnremarkable evaluation. Still with mild stool in the right side. Normal appearing ovaries. Urinalysis clean. Recommend follow-up with GI. Vital Signs Vital signs: Vital Signs Pulse Rate 94 01/08/25 19:19 Respiratory Rate 20 01/08/25 19:19 Blood Pressure 127/70 01/08/25 19:19 Pulse Oximetry 100 01/08/25 19:19 Oxygen Delivery Room Air 01/08/25 19:19 Pulse Rate 76 01/08/25 21:15 Respiratory Rate 16 01/08/25 21:15 Blood Pressure 141/89 H 01/08/25 21:15 Pulse Oximetry 100 01/08/25 21:15 Oxygen Delivery Room Air 01/08/25 19:19 MDM - Abdominal Pain Lab Data 01/08/25 20:18 01/08/25 20:18 Labs: Lab Results 01/08/25 01/08/25 Range/Units 20:07 20:18 WBC 9.3 (4.5-10.0) K/mm3 RBC 5.32 (4.2-5.4) M/mm3 Hgb 13.3 (12.0-15.0) g/dL Hct 39.2 (37.0-47.0) % MCV 73.7 L (80-100) fl MCH 25.0 L (26-34) pg MCHC 33.9 (32-36) g/dl RDW 13.6 (11.5-14.5) % Plt Count 325 (150-375) k/mm3 MPV 10.3 (7.4-10.4) fl Immature Gran % (Auto) 0.2 (0-0.5) % Neut % (Auto) 54.9 (45.5-73.1) % Lymph % (Auto) 37.1 (18.3-44.2) % [place] % (Auto) 5.2 (2.6-8.5) % Eos % (Auto) 2.3 (0-4.4) % Baso % (Auto) 0.3 (0.2-1.2) % Lymph # (Auto) 3.44 H (0.9-3.2) K/mm3 [place] # (Auto) 0.5 (0.1-0.6) K/mm3 Eos # (Auto) 0.2 (0-0.3) K/mm3 Baso # (Auto) 0.0 (0.0-0.1) K/mm3 Abs Immat Gran (auto) 0.02 (0.00-0.031) K/mm3 Absolute Neuts (auto) 5.1 (1.3-6.7) K/mm3 Absolute Nucleated RBC 0.000 (0.0-0.012) K/mm3 Band Neutrophils % 0 (0-6) % Nucleated RBC % 0.0 (0.0-0.2) % Platelet Estimate Adequate (Adequate) Ovalocytes 1+ Schistocytes None seen Sodium 141 (137-145) mmol/L Potassium 4.1 (3.4-5.0) mmol/L Chloride 104 (98-107) mmol/L Carbon Dioxide 25 (22-30) mmol/L Anion Gap 12 (4-12) mmol/L BUN 13 (7-17) mg/dL Creatinine 0.79 (0.7-1.0) mg/dL Estim Creat Clear Calc 135 ml/min Estimated GFR > 60 (59 - ) Glucose 93 (65-110) mg/dL Calcium 9.6 (8.4-10.2) mg/dL Total Bilirubin 0.3 (0.2-1.3) mg/dL AST 20 (14-36) U/L ALT 21 (6-35) U/L Alkaline Phosphatase 65 (38-126) U/L Total Protein 8.0 (6.3-8.2) g/dL Albumin 4.5 (3.5-5.1) g/dL Lipase 57 (23-300) U/L Urine Color Yellow (Yellow) Urine Appearance Clear (Clear) Urine pH 6.5 (5.0-9.0) Ur Specific [place] 1.022 (1.001-1.035) Urine Protein Negative (Negative) mg/dL Urine Glucose (UA) Negative (Negative) mg/dL Urine Ketones Negative (Negative) mg/dL Ur Blood (Man) Negative (Negative) Urine Nitrate Negative (Negative) Urine Bilirubin Negative (Negative) Urine Urobilinogen 0.2 (<2.0) mg/dL Leukocyte Esterase Rfl Negative (Negative) KEYA/UL POC Urine HCG, Qual Negative (Negative) Imaging Data Radiologist's impression: ITS Impressions Abdomen/Pelvis CT 01/08/25 21:34 IMPRESSION: No acute pathology within the abdomen or pelvis. Discharge Plan Discharge Clinical Impression: Abdominal pain, right lower quadrant Patient Disposition: Home, Self-Care Condition: Stable Instructions: Constipation (ED), Abdominal Pain (ED) Additional Instructions: Return to the emergency department if you develop severe abdominal pain, severe nausea and vomiting to the point where you are unable to keep down fluids, if you develop chest pain or difficulty breathing, blood in your stool, dizziness or fainting, or if you develop any other new or concerning symptoms as these could be signs of more serious medical illness. Try to stay well hydrated. Continue her stool softeners. Patient Language: Colombian Prescriptions: No Action medroxyprogesterone 150 mg/mL syringe See Rx Instructions .ROUTE .COMPLEX Rx Instructions: as prescribed mupirocin 2 % ointment 1 applic TOPICAL TID 7 Days Qty: 15 0RF acetaminophen 500 mg capsule 1,000 mg PO Q6H PRN (Reason: pain) Qty: 30 0RF dicyclomine 10 mg capsule 20 mg PO BID PRN (Reason: abdominal pain) Qty: 20 0RF magnesium citrate Solution 150 ml PO DAILY PRN (Reason: constipation) Qty: 296 0RF polyethylene glycol 3350 [Miralax] 17 gram/dose powder 17 g PO DAILY Qty: 119 0RF psyllium husk [Metamucil] 0.4 gram capsule 0.4 g PO DAILY Qty: 30 0RF Follow-up/Referrals: Sher,Carley Rodriguez NP [Primary Care Provider] - 1 Week Paul Soto MD [Physician] - 1 Week
[2025-01-08 20:29] LABS: Basophils Percent Auto 0.3 % (0.2-1.2); Eosinophils Absolute Auto 0.2 K/mm3 (0-0.3); Eosinophils Percent Auto 2.3 % (0-4.4); Hematocrit 39.2 % (37.0-47.0); Hemoglobin 13.3 g/dL (12.0-15.0); Immature Granulocyte Absolute 0.02 K/mm3 (0.00-0.031); Immature Granulocyte Percent A 0.2 % (0-0.5); Lymphocytes Absolute Auto 3.44 K/mm3 (0.9-3.2); Lymphocytes Percent Auto 37.1 % (18.3-44.2); Mean Corpuscular HGB Conc 33.9 g/dl (32-36); Mean Corpuscular Volume 73.7 fl (80-100); Mean Platelet Volume 10.3 fl (7.4-10.4); Monocytes Absolute Auto 0.5 K/mm3 (0.1-0.6); Monocytes Percent Auto 5.2 % (2.6-8.5); Neutrophils Absolute Auto 5.1 K/mm3 (1.3-6.7); Neutrophils Percent Auto 54.9 % (45.5-73.1); Platelet Count Result 325 k/mm3 (150-375); Red Blood Count 5.32 M/mm3 (4.2-5.4); Red Cell Distribution Width 13.6 % (11.5-14.5); White Blood Count 9.3 K/mm3 (4.5-10.0)
[2025-01-08 20:31] LABS: Add Urine Microscopic? NO; Appearance Urine Clear (Clear); Bilirubin Urine Negative (Negative); Blood Urine Negative (Negative); Color Urine Yellow (Yellow); Glucose Urine UA Negative (Negative); Ketones Urine Negative (Negative); Leukocyte Esterase Ur Negative LEU/UL (Negative); Nitrate Urine Negative (Negative); Protein Urine Negative (Negative); Specific Grav Ur 1.022 (1.001-1.035); Urobilinogen Urine 0.2 mg/dL (<2.0); pH Urine 6.5 (5.0-9.0)
--- OUTSIDE RECORDS SUMMARY | 2025-01-08 20:39 | XMS_ITS | Referral Summary ---
Author Organization [facility] ospital Address [address] [place] [address] Care Team Providers Care Medical Dosimetrist Name Role Phone No, Physician Primary Care Provider [phone] Encounters Date Type Department Care Team Description 01/03/2025 3:38 PM CDT - 01/03/2025 6:34 PM CDT Emergency [facility] Emergency Department 1 [place] [address] Abdominal pain (Primary Dx) Discharge Disposition: Discharge to home or self care 10/13/2024 11:10 AM WASHCOAT WIPER - 10/13/2024 12:23 PM [facility] Emergency [facility] Emergency Department [address] [place] [address] Acute pharyngitis, unspecified etiology (Primary Dx) Discharge [...] on file Legal Sex Female 5:17 PM WASHCOAT WIPER Gender Identity Not on file Sexual Orientation [...] AND COVID-19 PCR Routine 10/13/2024 9:13 AM WASHCOAT WIPER STREPTOCOCCUS GROUP A PCR STAT 10/13/2024 9:13 AM WASHCOAT WIPER from Last 3 Months Results * CT [...] Anand Boyce M.D. RB: SANDRA Report ID: [id number] Reading Location: [id number] Procedure Note Anand Boyce MD - 01/03/2025 [...] Anand Boyce M.D. RB: SANDRA Report ID: [id number] Reading Location: [place] [address] PROCEDURES Final Result [...] for uric acid stone formation. Source: [facility] Current Interpretive Data was last revised on [...] ([place]) [address] Department [place] [address] * (ABNORMAL) Urinalysis, microscopic only (01/03/2025 4:13 PM CDT) [facility] WBC, ur 0-5 0 - 5 /HPF RBC, ur 0-2 0 - 2 /HPF [facility] ([place]) Epithelial cells, squamous, ur 1-5 0 - 5 /HPF [facility] ([place]) Bacteria, ur Trace(A) [facility] ([place]) Mucous, ur Present(A) [facility] A ([place]) Culture Reflex Comment Reflex conditions for urine culture (WBC >10) not met. [facility] ([place]) Urine 01/03/2025 4:13 PM CDT 01/03/2025 4:17 PM CDT Lucina Vigil MD LAB URINE ORDERABLES Felecia l Result [facility] ([place]) 1 [facility] Department [place] [address] * POCT hCG, urine (01/03/2025 4:10 PM CDT) [facility] HCG, ur, POC Negative Negative Lot Number [id number] QC Backgroud Clear Acceptable QC Control Line Acceptable Urine 01/03/2025 4:10 PM CDT Lucina Vigil MD POINT OF CARE TEST ORDERA BLES Final Result * eGFR (01/03/2025 2:11 PM CDT) [facility] eGFR >90 >=60 mL/min/1. 73 m2 [...] BLOOD ORDERABLES Felecia escudero Result [facility] ([place]) 1 [facility] Department [place] [address] * Differential, auto (01/03/2025 2:11 PM CDT) [...] Felecia l Result [facility] ([place]) 1 [facility] Department [place] [address] * (ABNORMAL) CBC with auto differential (01/03/2025 [...] [facility] ([place]) 1 [facility] [place] [address] * Lipase (01/03/2025 2:11 PM CDT) Pathologist [facility] Lipase 19 10 - 99 Units/L Blood Venous blood specimen / Unknown 01/03/2025 2:11 PM CDT 01/03/2025 2:14 PM CDT Lucina Vigil MD LAB BLOOD ORDERABLES Felecia l Result Performing Organization Address City/[facility]/ZIP Co de Phone Number [facility] ([place]) 1 [facility] [place] [address] * (ABNORMAL) Comprehensive metabolic panel (01/03/2025 2:11 [...] Anion gap 15 2 - 15 mmol/L [facility] ([place]) BUN 11 6 - 25 [...] ([place]) Albumin 4.1 3.5 - 5.0 g/dL [facility] ([place]) Alk phos 78 [...] MD LAB BLOOD ORDERABLES Felecia l Result [facility] ([place]) 1 [facility] Department [place] [address] * Influenza A/B, RSV, and COVID-19 PCR Nasopharyngeal (10/13/2024 9:13 AM WASHCOAT WIPER) COVID-19 RNA Negative Negative Influenza A RNA Negative Negative [facility] ([place]) Influenza B RNA Negative Negative [facility] ([place]) RSV RNA Negative Negative [facility] ([place]) Comment: Interpretive data: Testing performed by [facility]. This test is performed using the [employer] Xpert Xpress CoV-2/Flu/RSV plus assay. This is a multiplex, real- time reverse transcriptase PCR assay intended for the qualitative detection of nucleic acid from SARS-CoV-2, influenza A, influenza B, and respiratory syncytial virus. This assay has been cleared by the [place] Food and Drug administration. The performance characteristics have been verified by the [facility]. Results must be considered in the clinical context, and a negative result does not rule out infection. Interpretive Data last revised 2023 Nasopharyngeal 10/13/2024 9: 13 AM WASHCOAT WIPER 10/13/2024 9:17 AM WASHCOAT WIPER Narrative [facility] ([place]) - 10/13/2024 10:09 AM WASHCOAT WIPER Is the Patient experiencing symptoms consistent with COVID?->Yes us Charly Rosas MD LAB MICROBIOLOGY - GENERAL O RDERABLES Final Result [facility] ([place] 1 [facility] Department [place] [address] * Streptococcus Group A PCR Throat (10/13/2024 9:13 AM WASHCOAT WIPER) Pathologist [facility] Strep A DNA Not Detected Not Detected Comment: This test is performed using the [employer] Xpert Group A Streptococcal Assay. This is [...] the performing laboratory. Throat 10/13/2024 9:13 AM WASHCOAT WIPER 10/13/2024 9:17 AM WASHCOAT WIPER us Charly Rosas MD LAB MICROBIOLOGY - GENERAL O RDERABLES Final Result [facility] ([place]) 1 [facility] Department of Laboratories [place], [place] [id number] from Last 3 Months Insurance [facility] [place] [address] [address] Care Teams Medical Dosimetrist Relationship Specialty Start Date End Date No, Physician PCP - General 10/13/24
--- OUTSIDE RECORDS SUMMARY | 2025-01-08 20:39 | XMS_ITS | Encounter Summary ---
Author Organization [facility] Address [address] [place] [address] Care Team Providers Care Cloth Edge Singer Name Role Phone Saira Vidal MD Primary Care Provider [phone] Encounter Details Date Type Department Care Team (Late st Contact Info) Description 03/21/2019 Telephone [facility] Pediatrics - [address] [address] Page Mott MD [address] [place] [id number] Social History Tobacco Use Types Packs/Day Years [...] on filedocumented in this encounter Care Teams Cloth Edge Singer Relationship Specialty Start Date End Date Saira Vidal MD PCP - General Pediatrics 02/23/16 documented as of this encounter
--- OUTSIDE RECORDS SUMMARY | 2025-01-08 20:39 | XMS_ITS | Clinical Summary ---
Author Organization [facility] Address [address] [place] [address] Phone Care Team Providers Care Dairy Equipment Specialist Name Role Phone Saira Vidal MD Primary Care Provider [phone] Allergies No known active allergies Medications FLUoxetine [...] PLAN MEDICAID [employer] Care Teams Dairy Equipment Specialist Relationship Specialty Start Date End Date Saira Vidal MD [address] [facility] [address] [address] PCP - General Pediatrics 11/10/15
--- OUTSIDE RECORDS SUMMARY | 2025-01-08 20:39 | XMS_ITS | Clinical Summary ---
Author Organization [facility] Address [address] [place] [address] Care Team Providers Care Combine Operator Name Role Phone No, Physician Primary Care Provider [phone] Allergies No known active allergies Medications naproxen [...] CDT - 01/03/2025 6:34 PM CDT Emergency [facility] Emergency Department [address] [place] [address] Abdominal pain (Primary Dx) Discharge Disposition: Discharge to home or self care 10/13/2024 11:10 AM PEDIATRIC CLINICAL DIETICIAN - 10/13/2024 12:23 PM [facility] Emergency [facility] Emergency Department [address] [place] [address] Acute pharyngitis, unspecified etiology (Primary Dx) Discharge [...] on file Legal Sex Female 5:17 PM PEDIATRIC CLINICAL DIETICIAN Gender Identity Not on file Sexual Orientation [...] AND COVID-19 PCR Routine 10/13/2024 9:13 AM PEDIATRIC CLINICAL DIETICIAN STREPTOCOCCUS GROUP A PCR STAT 10/13/2024 9:13 AM PEDIATRIC CLINICAL DIETICIAN from Last 3 Months Results * CT [...] Anand Boyce M.D. RB: SANDRA Report ID: [id number] Reading Location: [id number] Procedure Note Anand Boyce MD - 01/03/2025 [...] Anand Boyce M.D. RB: SANDRA Report ID: [id number] Reading Location: [place] [address] H[address] Aftab ANDRADE [facility] CT PROCEDURES Final Result * (ABNORMAL) Urinalysis reflex to microscopic and culture Urine (01/03/2025 4:13 PM CDT) Color, ur Yellow Yellow Clarity, ur Clear Clear [facility] A ([place]) Specific gravity, ur 1.028 1.003 [...] tendency for uric acid stone formation. Source: [facility] [employer] Current Interpretive Data was last revised [...] ORDERABLES Final Result [facility]ELINA ([place]) 1 [facility] Department of Laboratories [place], [place] [id number] * (ABNORMAL) Urinalysis, microscopic only (01/03/2025 4:13 [...] URINE ORDERABLES Felecia l Result [facility] ([place]) 1 [facility] [employer] [place] [address] * POCT hCG, urine (01/03/2025 4:10 PM CDT) HCG, ur, POC Negative Negative Lot Number [id number] QC Backgroud Clear Acceptable QC Control Line Acceptable Urine 01/03/2025 4:10 PM CDT Lucina Vigil MD POINT OF CARE TEST ORDERA BLES Final Result * eGFR (01/03/2025 2:11 PM CDT) Pathologist [facility] eGFR >90 >=60 mL/min/1. 73 m2 Comment: [...] BLOOD ORDERABLES Felecia l Result [facility] ([place]) 1 [facility] [place] [place] [address] * Differential, auto (01/03/2025 2:11 PM CDT) [...] Felecia l Result [facility] ([place]) 1 [facility] [place] [address] * (ABNORMAL) CBC with auto differential (01/03/2025 2:11 PM CDT) Pathologist [facility] WBC 6.9 3.8 - 9.9 K/cumm Hgb [...] Felecia l Result [facility] ([place]) 1 [facility] [place] [address] * Lipase (01/03/2025 2:11 PM CDT) Lipase 19 10 - 99 Units/L Blood Venous blood specimen / Unknown 01/03/2025 2:11 PM CDT 01/03/2025 2:14 PM CDT Lucina Vigil MD LAB BLOOD ORDERABLES Felecia escudero Result [facility] ([place]) 1 [facility] [place] [address] * (ABNORMAL) Comprehensive metabolic panel (01/03/2025 2:11 [...] Protein, pl 7.7 6.5 - 8.5 g/dL [facility] ([place]) Albumin 4.1 3.5 - 5.0 g/dL [facility] ([place]) Alk phos 78 40 - 130 Units/L [facility] ([place]) ALT 18 7 - 45 Units/L [facility] ([place]) Comment: Hemolysis present. Results may be affected. Moderately Hemolyzed Specimen AST 22 10 - 45 Units/L [facility] ([place]) Comment: Hemolysis present. Results may be affected. Moderately Hemolyzed Specimen Blood 01/03/2025 2:11 PM CDT 01/03/2025 2:14 PM CDT Lucina Vigil MD LAB BLOOD ORDERABLES Felecia escudero Result [facility] ([place]) 1 [facility] Department [place] [address] * Influenza A/B, RSV, and COVID-19 PCR Nasopharyngeal (10/13/2024 9:13 AM PEDIATRIC CLINICAL DIETICIAN) COVID-19 RNA Negative Negative Influenza A RNA Negative Negative [facility] ([place]) Influenza B RNA Negative Negative [facility] ([place]) RSV RNA Negative Negative [facility] ([place]) Comment: Interpretive data: Testing performed by [facility]. This test is performed using the [employer] inTouch Xpert Xpress CoV-2/Flu/RSV plus assay. This is a multiplex, real- time reverse transcriptase PCR assay intended for the qualitative detection of nucleic acid from SARS-CoV-2, influenza A, influenza B, and respiratory syncytial virus. This assay has been cleared by the [place] Food and Drug administration. The performance characteristics have been verified by the [facility]. Results must be considered in the clinical context, and a negative result does not rule out infection. Interpretive Data last revised 2023 Nasopharyngeal 10/13/2024 9: 13 AM PEDIATRIC CLINICAL DIETICIAN 10/13/2024 9:17 AM PEDIATRIC CLINICAL DIETICIAN Narrative [facility] ([place]) - 10/13/2024 10:09 AM PEDIATRIC CLINICAL DIETICIAN Is the Patient experiencing symptoms consistent with COVID?->Yes Charly Rosas MD LAB MICROBIOLOGY - GENERAL O RDERABLES Final Result [facility] ([place]) 1 [facility] [place] [address] * Streptococcus Group A PCR Throat (10/13/2024 9:13 AM PEDIATRIC CLINICAL DIETICIAN) Strep A DNA Not Detected Not Detected Comment: This test is performed using the [employer] inTouch Xpert Group A Streptococcal Assay. This is [...] the performing laboratory. Throat 10/13/2024 9:13 AM PEDIATRIC CLINICAL DIETICIAN 10/13/2024 9:17 AM PEDIATRIC CLINICAL DIETICIAN Charly Rosas MD LAB MICROBIOLOGY - GENERAL O RDERABLES Final Result Performing Organization Address [facility] de Phone Number [facility] ([place]) 1 [facility] [place] [address] from Last 3 Months Insurance [facility] [place] [address] Care Teams Combine Operator Relationship Specialty Start Date End Date No, Physician PCP - General 10/13/24
--- OUTSIDE RECORDS SUMMARY | 2025-01-08 20:39 | XMS_ITS | Clinical Summary ---
Author Organization [facility] Address [address] [facility] [place] [address] Care Team Providers Care Ammonia Worker Name Role Phone Saira Vidal MD Primary Care Provider [phone] Source Comments [facility] [email or web address],non-owned Affiliates and Associated Physician Practices is amultiple site organization consisting of ambulatory clinics and hospital sitesin [place], [place], [place] and [place]. This disclosure is being madepursuant to the Care Everywhere program and may not contain all information available regarding this patient. Last updated 18.[email or web address] Allergies No known active allergies Medications * [...] age to complete this topic Care Teams Ammonia Worker Relationship Specialty Start Date End Date Saira Vidal MD PCP - General Pediatrics 02/23/16
[2025-01-08 20:40] LABS: Alanine Aminotransferase 21 U/L (6-35); Albumin Level 4.5 g/dL (3.5-5.1); Alkaline Phosphatase 65 U/L (38-126); Anion Gap 12 mmol/L (4-12); Aspartate Amino Transferase 20 U/L (14-36); Bilirubin,Total 0.3 mg/dL (0.2-1.3); Blood Urea Nitrogen 13 mg/dL (7-17); Calcium 9.6 mg/dL (8.4-10.2); Carbon Dioxide 25 mmol/L (22-30); Chloride 104 mmol/L (98-107); Estimated CRCL calculation 135 ml/min; Estimated Glomerular Filt Rate > 60; Glucose 93 mg/dL (65-110); Lipase 57 U/L (23-300); Potassium 4.1 mmol/L (3.4-5.0); Sodium 141 mmol/L (137-145)
[2025-01-08 20:53] LABS: Band Neutrophils Percent 0 % (0-6); Ovalocytes 1+; Platelet Estimate Adequate (Adequate); Schistocytes None Seen
[2025-01-08 21:15] VITALS: BP 141/89; PULSE 76; RESP 16; O2SAT 100
[2025-01-08 22:14] VITALS: BP 142/58; PULSE 78; RESP 15; O2SAT 100
== END 2025-01-08 22:15 | disposition home or self-care (01) ==
PROVIDERS: Emergency Provider Emergency Medicine; PCP Nurse Practitioner Family
DX: R10.31 Right lower quadrant pain (principal)
CPT/HCPCS: 36415; 74177; 80053; 81003; 81025; 83690; 85025; 96361; 96374; 96375; 99284; J2270; J2405; J7030; Q9967